=== PATIENT | female | born 1985 | race Caucasian/White ===

== ENCOUNTER 2016-03-19 13:44 | Outpatient (CLI) | payer OTHER ==
[~2016-03-19] VITALS: Ht 157.5 cm; Wt 90.0 kg
[~2016-03-19 13:44] MED LIST: /MOM400 PO; GABA-279 PO; HYDR-4274 PO; IBUP80TA PO; NORT25CA2 PO; OMEP40CA2 PO; PRENTAB74 PO; PRIL20CA PO; PROZ20CA11 PO; TRAZ50TA4 PO; ZONI100C2 PO
[2016-03-19] MEDS ORDERED: FERR325T3 PO (13:49)
[2016-03-19] MEDS ORDERED: PRENTAB9 PO (13:49)
[2016-03-19 13:58] VITALS: BP 122/60
== END 2016-03-19 16:03 | disposition home or self-care (01) ==
LOC: M LDO 13:44
PROVIDERS: ATTEND Advanced Practice Midwife
DX: O47.03 False labor before 37 completed weeks of gestation, third trimester (principal); Z3A.29 29 weeks gestation of pregnancy; N89.8 Other specified noninflammatory disorders of vagina; B18.2 Chronic viral hepatitis C; F32.9 Major depressive disorder, single episode, unspecified; F11.21 Opioid dependence, in remission; O98.413 Viral hepatitis complicating pregnancy, third trimester; O99.343 Other mental disorders complicating pregnancy, third trimester; O26.893 Other specified pregnancy related conditions, third trimester

== ENCOUNTER → 2016-03-21 | Outpatient (REF) | payer OTHER ==
[~2016-03-21] MED LIST changes: +FERR325T3 PO; +PRENTAB9 PO
== END ==
LOC: M LAB REF 16:37
PROVIDERS: ATTEND Advanced Practice Midwife
DX: Z34.83 Encounter for supervision of other normal pregnancy, third trimester (principal)

== ENCOUNTER → 2016-03-23 | Outpatient (REF) | payer OTHER ==
[2016-03-23 12:21] LABS: ALBUMIN 2.9 GM/DL (3.2-5.2); ALBUMIN/GLOBULIN RATIO 0.83 (1.00-1.93); ALKALINE PHOSPHATASE 79 U/L (45-117); ALT/SGPT 31 U/L (12-78); ANION GAP 10 MEQ/L (8-16); AST/SGOT 23 U/L (15-37); BILIRUBIN,TOTAL 0.4 MG/DL (0.2-1.0); BLOOD UREA NITROGEN 14 MG/DL (7-18); CALCIUM LEVEL 8.6 MG/DL (8.5-10.1); CARBON DIOXIDE LEVEL 26 MEQ/L (21-32); CHLORIDE LEVEL 104 MEQ/L (98-107); CREATININE FOR GFR 0.72 MG/DL (0.55-1.02); GLOMERULAR FILTRATION RATE > 60.0 (>60); GLUCOSE, FASTING 84 MG/DL (70-105); SODIUM LEVEL 140 MEQ/L (136-145); TOTAL PROTEIN 6.4 GM/DL (6.4-8.2)
[2016-03-25 00:06] LABS: HEPATITIS C QUANTITATION 659670 IU/mL (.)
== END ==
LOC: M SFHCPLAZ 09:25
PROVIDERS: ATTEND Internal Medicine Infectious Disease
DX: B18.2 Chronic viral hepatitis C (principal)

== ENCOUNTER 2016-04-29 21:30 | Outpatient (CLI) | payer OTHER, SELFPAY ==
[~2016-04-29] VITALS: Ht 162.6 cm; Wt 95.0 kg
[~2016-04-29 21:30] MED LIST changes: -PRIL20CA PO; +PRIL20CA9 PO
== END 2016-04-29 23:40 | disposition home or self-care (01) ==
LOC: M LDO 21:30
PROVIDERS: ATTEND Obstetrics & Gynecology
DX: O26.893 Other specified pregnancy related conditions, third trimester (principal); R14.0 Abdominal distension (gaseous); Z3A.36 36 weeks gestation of pregnancy; O98.413 Viral hepatitis complicating pregnancy, third trimester; B19.20 Unspecified viral hepatitis C without hepatic coma; Z87.898 Personal history of other specified conditions

== ENCOUNTER → 2016-05-05 | Outpatient (REF) | payer OTHER, SELFPAY | LOC: M LAB REF 12:19 | PROVIDERS: ATTEND Obstetrics & Gynecology | DX: Z34.83 Encounter for supervision of other normal pregnancy, third trimester (principal) ==

== ENCOUNTER → 2016-05-24 | Outpatient (REF) | payer OTHER ==
[~2016-05-24] MED LIST changes: +GABAPOW41 PO; +HYDROXIZINE PO
== END ==
LOC: M LAB REF 12:59
PROVIDERS: ATTEND Advanced Practice Midwife
DX: Z34.82 Encounter for supervision of other normal pregnancy, second trimester (principal)

== ENCOUNTER 2016-05-29 18:23 | Outpatient (CLI) | payer OTHER ==
[~2016-05-29] VITALS: Ht 160 cm; Wt 97.0 kg
[~2016-05-29 18:23] MED LIST changes: -GABAPOW41 PO; -HYDROXIZINE PO
[2016-05-29] MEDS ORDERED: GABAPOW41 PO (18:32)
[2016-05-29] MEDS ORDERED: HYDROXIZINE PO (18:34)
== END 2016-05-29 20:55 | disposition home or self-care (01) ==
LOC: M LDO 18:23
PROVIDERS: ATTEND Obstetrics & Gynecology
DX: O47.1 False labor at or after 37 completed weeks of gestation (principal); Z3A.39 39 weeks gestation of pregnancy

== ENCOUNTER 2016-05-29 21:52 | Inpatient (IN) | payer OTHER ==
[~2016-05-29] VITALS: Ht 157.5 cm; Wt 96.0 kg
[~2016-05-29 21:52] MED LIST changes: +GABAPOW41 PO; +HYDROXIZINE PO
[2016-05-29 22:03] VITALS: BP 119/68
[2016-05-29] MEDS ORDERED: LACTATED RINGER'S 1000 ML IV STA (22:52)
[2016-05-29] MEDS ORDERED: LR 1,000 ML IV SCH (22:52)
[2016-05-29 23:31] LABS: BASO % 0.2 % (0.0-1.0); EOS # 0.3 K/mm3 (0.0-0.50); EOS % 2.6 % (0.0-3.0); LARGE UNSTAINED CELL # 0.1 K/mm3 (0.0-0.4); LARGE UNSTAINED CELL % 0.9 % (0.0-4.0); LYMPH # 1.7 K/mm3 (1.5-6.5); LYMPH % 13.3 % (24.0-44.0); MEAN CORPUSCULAR HGB CONC 34.8 g/dl (32.0-36.5); MONO # 0.7 K/mm3 (0.0-0.8); MONO % 5.4 % (0.0-5.0); NEUTROPHILS # 9.5 K/mm3 (1.8-7.7); NEUTROPHILS % 77.6 % (36.0-66.0); PLATELET COUNT, AUTOMATED 334 k/mm3 (150-450); RED CELL DISTRIBUTION WIDTH 13.1 % (11.5-14.5); WHITE BLOOD COUNT 12.3 K/mm3 (4.0-10.0)
[2016-05-30] VITALS (20 sets, daily range): BP systolic 105–192; BP diastolic 58–79
[2016-05-30] MEDS ORDERED: OXYTOCIN DRIP 30 UNITS in APPROPRIATE DILUENT 1 EA IV SCH ×2 (08:00→10:00)
[2016-05-30] MEDS: PRENATAL VITAMIN TAB PO SCH (09:00)
[2016-05-30] MEDS ORDERED: DIBUCAINE 1% OINTMENT 30GM TOP PRN (10:00)
[2016-05-30] MEDS ORDERED: IBUPROFEN 800 MG TAB PO PRN (10:00)
[2016-05-30] MEDS ORDERED: RHOGAM 300 MCG (1500 IU) INJ (J2790) IM SCH (10:00)
[2016-05-30] MEDS ORDERED: ANUSOL HC CREAM 30GM TOP PRN (10:00)
[2016-05-30] MEDS ORDERED: MEASLES,MUMPS,RUBELLA VACCINE INJ (MMR-II) (90707) SC SCH (10:00)
[2016-05-30] MEDS ORDERED: METHYLERGONOVINE MALEATE 0.2 MG TAB PO PRN (10:00)
[2016-05-30] MEDS ORDERED: DOCUSATE SODIUM 100 MG CAP PO PRN (10:00)
[2016-05-30 10:17] LABS: CORD GAS ABE V -2.5; CORD GAS HCO3 V 23.5 MEQ/L; CORD GAS O2 SAT V 59.3 %; CORD GAS PCO2 V 45.1 mmHg; CORD GAS PH V 7.335 UNITS; CORD GAS PO2 V 24.8 mmHg; CORD GAS SBC V 21.5 MEQ/L; CORD GAS TCO2 V 24.9 MEQ/L
[2016-05-30 10:19] LABS: CORD GAS ABE A -1.9; CORD GAS HCO3 A 24.6 MEQ/L; CORD GAS O2 SAT A 28.6 %; CORD GAS PCO2 A 48.8 mmHg; CORD GAS PH A 7.321 UNITS; CORD GAS PO2 A 14.9 mmHg; CORD GAS SBC A 21.3 MEQ/L; CORD GAS TCO2 A 26.1 MEQ/L
[2016-05-30] MEDS ORDERED: OXYTOCIN INJ 10 UNITS/ML VIAL (J2590) As Ordered ONE (15:54)
[2016-05-30] MEDS ORDERED: OXYTOCIN INJ 10 UNITS/ML VIAL (J2590) IV ONE (16:00)
[2016-05-31 06:00] VITALS: BP 102/51
[2016-05-31] MEDS: PRENATAL VITAMIN TAB PO SCH (08:21)
[2016-05-31] MEDS: ACETAMINOPHEN 500 MG TAB PO PRN ×2 (12:08→21:00)
[2016-05-31 18:05] VITALS: BP 105/59
--- NOTE | 2016-05-31 21:16 | HPE ---
DATE OF ADMISSION: 05/29/2016 Yuli is a 30-year-old female 7, para 2-0-4-2 with an EDC of 06/02/2016, EGA 39+ weeks gestation who presented with complaints of contractions every 3-4 minutes. Upon evaluation she was found to be in early labor. She was then discharged and came back with increased contractions, at this point a decision was made for admission. Her record reviewed. Blood is A+, rubella immune, hepatitis negative, HIV negative, GC/chlamydia negative, 1-hour sugar testing was within normal limits. Her GBS is negative. The patient has chronic hepatitis C. PAST MEDICAL HISTORY: Significant for chronic hepatitis C, no recent flare-up. PAST SURGICAL HISTORY: Had a LEEP procedure in 2009. SOCIAL HISTORY: She denies any alcohol or drug use. 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 FAMILY HISTORY: Unremarkable. MEDICATIONS: - vitamins ALLERGIES; No known drug allergies. PHYSICAL EXAMINATION: HEENT: Grossly within normal limits. ABDOMEN: Soft, nontender, nondistended. EXTREMITIES: No clubbing, cyanosis or edema. VAGINAL EXAM: Was 3-4 cm dilated, 80% effaced, fetus at -2 station in a vertex position. Tracing reviewed category one tracing. ASSESSMENT: Intrauterine at 39+ weeks gestation in labor. PLAN: Admit to labor and delivery. Routine labs sent. Pain management discussed. The patient opted for an epidural. Will continue to monitor. Anticipate delivery. [facility]
[2016-06-01 06:27] VITALS: BP 105/56
--- NOTE | 2016-06-01 06:52 | DN ---
DATE: 05/30/2016 Yuli is a 30-year-old female 7, para 2-0-4-2 who was admitted at 39 weeks gestation in labor. She progressed to fully dilated after artificial rupture of membranes with thick meconium and Pitocin augmentation. She delivered a live male in right occiput anterior position over an intact perineum. 9 and 9. weight 7 pounds 13 ounces. Placenta delivered spontaneously intact. Three-vessel cord. Perineum, vagina and cervix inspected. No laceration noted. The baby was cared for by our heel varnisher Dr. Wallace. Estimated blood loss 250 mL. Both mother and baby in stable condition.
[2016-06-01] MEDS ORDERED: IBUP-1114 PO (08:37)
[2016-06-01] MEDS ORDERED: ACET50TA PO (08:37)
[2016-06-01] MEDS: PRENATAL VITAMIN TAB PO SCH (08:55)
[2016-06-01] MEDS: ACETAMINOPHEN 500 MG TAB PO PRN (08:55)
== END 2016-06-01 10:00 | disposition home or self-care (01) | DRG 560 ==
LOC: M LDO 21:52 → M LDI 22:45 → M OBS 05-30 12:38
PROVIDERS: ADMIT Obstetrics & Gynecology; ATTEND Obstetrics & Gynecology
PROC: 10E0XZZ Delivery of Products of Conception, External Approach (ICD-10-PCS; principal; 2016-05-30)
PROC: 10907ZC Drainage of Amniotic Fluid, Therapeutic from Products of Conception, Via Natural or Artificial Opening (ICD-10-PCS; 2016-05-30)
DX: O98.42 Viral hepatitis complicating childbirth (principal); B18.2 Chronic viral hepatitis C; Z37.0 Single live birth; Z3A.39 39 weeks gestation of pregnancy; Z87.891 Personal history of nicotine dependence; O77.0 Labor and delivery complicated by meconium in amniotic fluid; Z79.899 Other long term (current) drug therapy

== ENCOUNTER → 2016-06-07 | Outpatient (CLI) | payer OTHER ==
[~2016-06-07] MED LIST changes: +ACET50TA PO; +IBUP-1114 PO
[2016-06-07 11:33] LABS: CONTROL LINE UCG INT CTR LINE PRESENT
[2016-06-07 11:45] LABS: BASO % 0.4 % (0.0-1.0); EOS # 0.1 K/mm3 (0.0-0.50); EOS % 1.3 % (0.0-3.0); LARGE UNSTAINED CELL # 0.1 K/mm3 (0.0-0.4); LARGE UNSTAINED CELL % 1.7 % (0.0-4.0); LYMPH # 1.5 K/mm3 (1.5-6.5); LYMPH % 18.8 % (24.0-44.0); MEAN CORPUSCULAR HEMOGLOBIN 31.4 pg (27.0-33.0); MEAN CORPUSCULAR HGB CONC 33.1 g/dl (32.0-36.5); MEAN CORPUSCULAR VOLUME 94.9 fl (80.0-96.0); MONO # 0.6 K/mm3 (0.0-0.8); MONO % 7.8 % (0.0-5.0); PLATELET COUNT, AUTOMATED 468 k/mm3 (150-450); RED CELL DISTRIBUTION WIDTH 12.3 % (11.5-14.5); WHITE BLOOD COUNT 7.2 K/mm3 (4.0-10.0)
[2016-06-07 12:07] LABS: ALBUMIN 2.9 GM/DL (3.2-5.2); ALBUMIN/GLOBULIN RATIO 0.83 (1.00-1.93); ALKALINE PHOSPHATASE 114 U/L (45-117); ALT/SGPT 37 U/L (12-78); ANION GAP 8 MEQ/L (8-16); AST/SGOT 22 U/L (15-37); BILIRUBIN,TOTAL 0.3 MG/DL (0.2-1.0); BLOOD UREA NITROGEN 19 MG/DL (7-18); CARBON DIOXIDE LEVEL 30 MEQ/L (21-32); CHLORIDE LEVEL 105 MEQ/L (98-107); CREATININE FOR GFR 0.88 MG/DL (0.55-1.02); GLOMERULAR FILTRATION RATE > 60.0 (>60); GLUCOSE, FASTING 78 MG/DL (70-105); POTASSIUM SERUM 4.3 MEQ/L (3.5-5.1); SODIUM LEVEL 143 MEQ/L (136-145); TOTAL PROTEIN 6.4 GM/DL (6.4-8.2)
[2016-06-07 12:54] LABS: CONTROL LINE INT CTR LINE PRESENT; HIV SCRN NEGATIVE (NEGATIVE); HIV SCRN1 NEGATIVE (NEGATIVE)
--- NOTE | 2016-06-08 21:55 | ECGEPIP ---
Stationary ECG Study [facility] Test Date: 2016-06-07 Pat Name: ERENDIRA ISSA Department: Room: - Gender: F [employer] Department Supervisor: : [id number] Requested By: Homer Sanchez Order Number: [id number] Reading MD: Cathy Turk Measurements Intervals [place] Rate: 60 P: 54 KS: 120 QRS: 13 QRSD: 85 T: 42 QT: 389 QTc: 391 Interpretive Statements SINUS RHYTHM WITH SINUS ARRHYTHMIA POSSIBLE LEFT ATRIAL ENLARGEMENT HR IS MUCH SLOWER SINCE 02/13/15 Electronically Signed On 06-08-2016 21:55:07 EDT by Cathy Turk
== END ==
LOC: M LAB 10:46
PROVIDERS: ATTEND Family Medicine
DX: F11.20 Opioid dependence, uncomplicated (principal)

== ENCOUNTER → 2016-06-15 | Outpatient (REF) | payer OTHER | LOC: M LAB REF 16:28 | PROVIDERS: ATTEND Nurse Practitioner Family | DX: R30.0 Dysuria (principal) ==

== ENCOUNTER 2017-01-03 12:27 | Emergency (ER) | payer OTHER ==
[~2017-01-03] VITALS: Ht 157.5 cm; Wt 78.2 kg
[~2017-01-03 12:27] MED LIST changes: -HYDR-4274 PO; +HYDR50TA70 PO; +TRAZ50TA11 PO; -TRAZ50TA4 PO
[2017-01-03] MEDS ORDERED: METH10CO PO (12:39)
[2017-01-03] MEDS ORDERED: cloNIDine 0.1 MG TAB PO ONE (13:15)
[2017-01-03] MEDS ORDERED: ONDANSETRON 4 MG TAB (S0181) PO ONE (13:15)
[2017-01-03] MEDS ORDERED: LORazepam 2 MG/ML VIAL (J2060) IV STA (13:50)
[2017-01-03] MEDS ORDERED: NS 1,000 ML IV ONE (14:00)
[2017-01-03 14:14] LABS: MEAN CORPUSCULAR HEMOGLOBIN 30.3 pg (27.0-33.0); MEAN CORPUSCULAR HGB CONC 33.7 g/dl (32.0-36.5); MEAN CORPUSCULAR VOLUME 89.9 fl (80.0-96.0); RED CELL DISTRIBUTION WIDTH 12.5 % (11.5-14.5); WHITE BLOOD COUNT 7.3 10^3/uL (4.0-10.0)
[2017-01-03 15:02] LABS: ALBUMIN 3.4 GM/DL (3.2-5.2); ALBUMIN/GLOBULIN RATIO 0.92 (1.00-1.93); ALKALINE PHOSPHATASE 97 U/L (45-117); ALT/SGPT 36 U/L (12-78); ANION GAP 7 MEQ/L (8-16); AST/SGOT 24 U/L (15-37); BILIRUBIN,TOTAL 0.2 MG/DL (0.2-1.0); BLOOD UREA NITROGEN 13 MG/DL (7-18); CALCIUM LEVEL 9.2 MG/DL (8.5-10.1); CARBON DIOXIDE LEVEL 27 MEQ/L (21-32); CHLORIDE LEVEL 108 MEQ/L (98-107); CREATININE FOR GFR 0.87 MG/DL (0.55-1.02); GLOMERULAR FILTRATION RATE > 60.0 (>60); GLUCOSE, FASTING 109 MG/DL (70-105); POTASSIUM SERUM 3.4 MEQ/L (3.5-5.1); SODIUM LEVEL 142 MEQ/L (136-145); TOTAL PROTEIN 7.1 GM/DL (6.4-8.2)
[2017-01-03] MEDS ORDERED: POTASSIUM CHLORIDE 10 MEQ SR TABLET PO ONE (15:45)
[2017-01-03 17:29] VITALS: BP 106/60
== END 2017-01-03 17:30 | disposition home or self-care (01) ==
LOC: M ED 12:27
DX: F11.23 Opioid dependence with withdrawal (principal); E87.6 Hypokalemia; B18.2 Chronic viral hepatitis C; Z72.0 Tobacco use
CPT/HCPCS: 80053; 83735; 85027; 96374; 99283; J2060

== ENCOUNTER → 2017-06-06 | Outpatient (REF) | payer OTHER ==
[2017-06-06 11:45] LABS: BASO % 0.5 % (0.0-1.0); EOS # 0.2 10^3/uL (0.0-0.50); EOS % 3.5 % (0.0-3.0); IMMATURE GRANULOCYTE % 0.2 % (0-3.0); LYMPH # 2.8 10^3/uL (1.5-6.5); LYMPH % 50.6 % (24.0-44.0); MEAN CORPUSCULAR HEMOGLOBIN 29.3 pg (27.0-33.0); MEAN CORPUSCULAR HGB CONC 32.4 g/dl (32.0-36.5); MEAN CORPUSCULAR VOLUME 90.5 fl (80.0-96.0); MONO # 0.6 10^3/uL (0.0-0.8); MONO % 11.7 % (0.0-5.0); NEUTROPHILS # 1.8 10^3/uL (1.8-7.7); NEUTROPHILS % 33.5 % (36.0-66.0); PLATELET COUNT, AUTOMATED 285 10^3/uL (150-450); RED BLOOD COUNT 4.09 10^6/uL (4.00-5.40); RED CELL DISTRIBUTION WIDTH 12.7 % (11.5-14.5); WHITE BLOOD COUNT 5.5 10^3/uL (4.0-10.0)
[2017-06-06 12:10] LABS: ALBUMIN 3.2 GM/DL (3.2-5.2); ALBUMIN/GLOBULIN RATIO 0.89 (1.00-1.93); ALKALINE PHOSPHATASE 103 U/L (45-117); ALT/SGPT 37 U/L (12-78); ANION GAP 5 MEQ/L (8-16); AST/SGOT 28 U/L (7-37); BILIRUBIN,TOTAL 0.3 MG/DL (0.2-1.0); BLOOD UREA NITROGEN 16 MG/DL (7-18); CALCIUM LEVEL 8.9 MG/DL (8.5-10.1); CARBON DIOXIDE LEVEL 30 MEQ/L (21-32); CHLORIDE LEVEL 110 MEQ/L (98-107); CREATININE FOR GFR 0.75 MG/DL (0.55-1.30); GLOMERULAR FILTRATION RATE > 60.0 (>60); GLUCOSE, FASTING 94 MG/DL (70-100); POTASSIUM SERUM 4.4 MEQ/L (3.5-5.1); SODIUM LEVEL 145 MEQ/L (136-145); TOTAL PROTEIN 6.8 GM/DL (6.4-8.2)
== END ==
LOC: M SFHCPLAZ 10:06
DX: B18.2 Chronic viral hepatitis C (principal)

== ENCOUNTER → 2017-06-06 | Outpatient (REF) | payer OTHER ==
[2017-06-06 18:30] LABS: APPEARANCE, URINE CLOUDY (CLEAR); BACTERIA, URINE AUTO 1+ (NEGATIVE); BILIRUBIN, URINE AUTO NEGATIVE (NEGATIVE); BLOOD, URINE BLOOD NEGATIVE (NEGATIVE); COLOR, URINE AMBER (YELLOW); GLUCOSE, URINE (UA) AUTO NEGATIVE (NEGATIVE); KETONE, URINE AUTO NEGATIVE (NEGATIVE); LEUKOCYTE ESTERASE, URINE AUTO 2+ (NEGATIVE); MUCUS, URINE SMALL (NEGATIVE); NITRITE, URINE AUTO NEGATIVE (NEGATIVE); PROTEIN, URINE AUTO NEGATIVE (NEGATIVE); RBC, URINE AUTO 1 /HPF (0-3); SPECIFIC GRAVITY URINE AUTO 1.028 (1.002-1.035); SQUAMOUS EPITHELIAL CELL UR AU 15 /HPF (0-6); WBC, URINE AUTO 7 /HPF (0-3)
== END ==
LOC: M LAB REF 17:19
DX: N39.0 Urinary tract infection, site not specified (principal)

== ENCOUNTER → 2017-06-06 | Outpatient (CLI) | payer OTHER ==
[2017-06-06 11:54] LABS: HEMATOCRIT 36.8 % (36.0-47.0); HEMOGLOBIN 12.1 g/dl (12.0-16.0); MEAN CORPUSCULAR HEMOGLOBIN 29.9 pg (27.0-33.0); MEAN CORPUSCULAR HGB CONC 32.9 g/dl (32.0-36.5); MEAN CORPUSCULAR VOLUME 90.9 fl (80.0-96.0); PLATELET COUNT, AUTOMATED 263 10^3/uL (150-450); RED BLOOD COUNT 4.05 10^6/uL (4.00-5.40); RED CELL DISTRIBUTION WIDTH 12.7 % (11.5-14.5); WHITE BLOOD COUNT 4.6 10^3/uL (4.0-10.0)
[2017-06-06 12:25] LABS: ALBUMIN 3.3 GM/DL (3.2-5.2); ALBUMIN/GLOBULIN RATIO 0.92 (1.00-1.93); ALKALINE PHOSPHATASE 102 U/L (45-117); ALT/SGPT 35 U/L (12-78); ANION GAP 6 MEQ/L (8-16); AST/SGOT 30 U/L (7-37); BILIRUBIN,TOTAL 0.4 MG/DL (0.2-1.0); BLOOD UREA NITROGEN 15 MG/DL (7-18); CALCIUM LEVEL 8.7 MG/DL (8.5-10.1); CARBON DIOXIDE LEVEL 29 MEQ/L (21-32); CHLORIDE LEVEL 110 MEQ/L (98-107); CREATININE FOR GFR 0.73 MG/DL (0.55-1.30); GLOMERULAR FILTRATION RATE > 60.0 (>60); GLUCOSE, FASTING 69 MG/DL (70-100); POTASSIUM SERUM 4.2 MEQ/L (3.5-5.1); SODIUM LEVEL 145 MEQ/L (136-145); TOTAL PROTEIN 6.9 GM/DL (6.4-8.2)
[2017-06-06 12:44] LABS: HEPATITIS B SURFACE ANTIGEN NEGATIVE (NEGATIVE)
[2017-06-06 13:07] LABS: HIV 1&2 SCREEN CENTAUR NEGATIVE (NEGATIVE)
[2017-06-06 13:59] LABS: HEPATITIS C VIRUS ABY INDEX > 11.0 INDEX (<0.8)
[2017-06-06 15:40] LABS: CHLAMYDIA DNA AMPLIFICATION NEGATIVE (NEGATIVE); GC DNA AMPLIFICATION NEGATIVE (NEGATIVE)
[2017-06-09 00:07] LABS: HCV RNA NAA QUALITATIVE Positive (Negative)
== END ==
LOC: M LAB 10:59
DX: F11.20 Opioid dependence, uncomplicated (principal)
CPT/HCPCS: 93005

== ENCOUNTER 2017-07-19 17:11 | Inpatient (IN) | payer OTHER ==
[2017-07-19 17:20] LABS: BASO % 0.4 % (0.0-1.0); EOS # 0.2 10^3/uL (0.0-0.50); EOS % 2.3 % (0.0-3.0); HEMATOCRIT 36.8 % (36.0-47.0); HEMOGLOBIN 12.1 g/dl (12.0-15.5); IMMATURE GRANULOCYTE % 0.1 % (0-3.0); LYMPH % 41.5 % (24.0-44.0); MEAN CORPUSCULAR HEMOGLOBIN 29.7 pg (27.0-33.0); MEAN CORPUSCULAR HGB CONC 32.9 g/dl (32.0-36.5); MEAN CORPUSCULAR VOLUME 90.4 fl (80.0-96.0); MONO # 0.8 10^3/uL (0.0-0.8); MONO % 10.7 % (0.0-5.0); NEUTROPHILS # 3.2 10^3/uL (1.8-7.7); PLATELET COUNT, AUTOMATED 280 10^3/uL (150-450); RED BLOOD COUNT 4.07 10^6/uL (4.00-5.40); WHITE BLOOD COUNT 7.1 10^3/uL (4.0-10.0)
[2017-07-19 17:53] LABS: LACTIC ACID SEPSIS PROTOCOL 0.6 MMOL/L (0.4-2.0)
[2017-07-19 18:00] LABS: ACETAMINOPHEN LEVEL < 2.0 UG/ML (10.0-30.0); ALBUMIN 3.3 GM/DL (3.2-5.2); ALBUMIN/GLOBULIN RATIO 0.94 (1.00-1.93); ALKALINE PHOSPHATASE 111 U/L (45-117); ALT/SGPT 45 U/L (12-78); ANION GAP 6 MEQ/L (8-16); AST/SGOT 44 U/L (7-37); BILIRUBIN,DIRECT 0.1 MG/DL (0.0-0.2); BILIRUBIN,TOTAL 0.4 MG/DL (0.2-1.0); BLOOD UREA NITROGEN 9 MG/DL (7-18); CARBON DIOXIDE LEVEL 32 MEQ/L (21-32); CHLORIDE LEVEL 104 MEQ/L (98-107); CPK CREATINE PHOSPHOKINASE 287 U/L (26-192); CREATININE FOR GFR 1.05 MG/DL (0.55-1.30); ETHYL ALCOHOL (ETHANOL) < 0.003 % (0.000-0.010); GLOMERULAR FILTRATION RATE > 60.0 (>60); GLUCOSE, FASTING 91 MG/DL (70-100); POTASSIUM SERUM 4.2 MEQ/L (3.5-5.1); SALICYLATE LEVEL 1.9 MG/DL (5.0-30.0); SODIUM LEVEL 142 MEQ/L (136-145); TOTAL PROTEIN 6.8 GM/DL (6.4-8.2)
[2017-07-19] MEDS: NALOXONE INJ 0.4 MG/1 ML VIAL (J2310) IV (18:00)
[2017-07-19 18:21] LABS: AMPHETAMINES LEVEL URINE NEGATIVE (NEGATIVE); BARBITURATES URINE NEGATIVE (NEGATIVE); BENZODIAZEPINES URINE POSITIVE (NEGATIVE); CANNABINOIDS URINE NEGATIVE (NEGATIVE); COCAINE METABOLITE URINE NEGATIVE (NEGATIVE); METHADONE URINE POSITIVE (NEGATIVE); OPIATES URINE NEGATIVE (NEGATIVE); PHENCYCLIDINE URINE NEGATIVE (NEGATIVE)
[2017-07-19 18:27] LABS: ABG BASE EXCESS 5.1 (-2.0-2.0); ABG HCO3 28.6 MEQ/L (22.0-26.0); ABG O2 SATURATION 96.4 % (95.0-99.0); ABG TOTAL CO2 29.7 MEQ/L (22.0-29.0); ABG pH (ARTERIAL) 7.494 UNITS (7.350-7.450)
[2017-07-19] MEDS ORDERED: ONDANSETRON 4MG/2ML VIAL (J2405) IV (19:00)
[2017-07-19] MEDS ORDERED: cloNIDine 0.2 MG TAB PO (19:45)
[2017-07-19 20:31] LABS: CPK CREATINE PHOSPHOKINASE 326 U/L (26-192); TROPONIN I < 0.02 NG/ML (< 0.10)
[2017-07-19 20:32] LABS: CK-MB VALUE MASS 7.6 NG/ML (<3.6); MB/CK RELATIVE INDEX 2.33 (< OR =4)
[2017-07-19] MEDS: GABAPENTIN 400 MG CAP PO (21:00)
[2017-07-19] MEDS: MULTIVITAMIN -ADULT INJECTION 10 ML, THIAMINE INJection 100 MG, FOLIC ACID 1 MG in NS 1... IV (21:01)
[2017-07-19] MEDS: HEPARIN SOD (PORCINE) 5000 UNITS/ML VIAL SC (21:07)
[2017-07-20 04:15] LABS: HEMATOCRIT 35.8 % (36.0-47.0); HEMOGLOBIN 11.9 g/dl (12.0-15.5); MEAN CORPUSCULAR HEMOGLOBIN 30.1 pg (27.0-33.0); MEAN CORPUSCULAR HGB CONC 33.2 g/dl (32.0-36.5); MEAN CORPUSCULAR VOLUME 90.6 fl (80.0-96.0); PLATELET COUNT, AUTOMATED 274 10^3/uL (150-450); RED BLOOD COUNT 3.95 10^6/uL (4.00-5.40); RED CELL DISTRIBUTION WIDTH 12.9 % (11.5-14.5); WHITE BLOOD COUNT 6.2 10^3/uL (4.0-10.0)
[2017-07-20 04:38] LABS: ALBUMIN 2.7 GM/DL (3.2-5.2); ALBUMIN/GLOBULIN RATIO 0.75 (1.00-1.93); ALKALINE PHOSPHATASE 96 U/L (45-117); ALT/SGPT 38 U/L (12-78); ANION GAP 5 MEQ/L (8-16); AST/SGOT 48 U/L (7-37); BILIRUBIN,TOTAL 0.4 MG/DL (0.2-1.0); BLOOD UREA NITROGEN 8 MG/DL (7-18); CALCIUM LEVEL 8.1 MG/DL (8.5-10.1); CARBON DIOXIDE LEVEL 28 MEQ/L (21-32); CHLORIDE LEVEL 109 MEQ/L (98-107); CK-MB VALUE MASS 4.2 NG/ML (<3.6); CPK CREATINE PHOSPHOKINASE 245 U/L (26-192); CREATININE FOR GFR 0.77 MG/DL (0.55-1.30); GLOMERULAR FILTRATION RATE > 60.0 (>60); GLUCOSE, FASTING 91 MG/DL (70-100); MAGNESIUM LEVEL 1.6 MG/DL (1.8-2.4); MB/CK RELATIVE INDEX 1.71 (< OR =4); POTASSIUM SERUM 4.4 MEQ/L (3.5-5.1); SODIUM LEVEL 142 MEQ/L (136-145); TOTAL PROTEIN 6.3 GM/DL (6.4-8.2); TROPONIN I < 0.02 NG/ML (< 0.10)
[2017-07-20] MEDS: HEPARIN SOD (PORCINE) 5000 UNITS/ML VIAL SC ×3 (06:00→21:00)
[2017-07-20] MEDS: THIAMINE 100 MG TAB PO (08:08)
[2017-07-20] MEDS: MAG SULF 1GM/100ML (MAG RUN) 1 GM in APPROPRIATE DILUENT 1 EA IV ×2 (08:08→09:12)
[2017-07-20] MEDS: FLUoxetine 10 MG CAP PO (08:08)
[2017-07-20] MEDS: FOLIC ACID 1 MG TAB PO (08:08)
[2017-07-20] MEDS: GABAPENTIN 400 MG CAP PO ×3 (08:08→21:00)
[2017-07-20] MEDS: MULTIVITAMINS/MINERALS THERAP 1 TAB PO (08:08)
[2017-07-20] MEDS ORDERED: ENTER DRUG NAME HERE (PATIENT'S OWN MED) PO ×2 (09:00)
[2017-07-20] MEDS: NICOTINE POLACRILEX 2 MG GUM PO ×2 (14:51→22:25)
== END 2017-07-20 23:19 | DRG 812 ==
LOC: M MSPAV 07-20 16:34 → M ED 17:11 → M ED INP 18:56 → M ICU 20:51
DX: T42.4X4A Poisoning by benzodiazepines, undetermined, initial encounter (principal); F32.9 Major depressive disorder, single episode, unspecified; R53.83 Other fatigue; B19.20 Unspecified viral hepatitis C without hepatic coma; Z91.018 Allergy to other foods; F17.210 Nicotine dependence, cigarettes, uncomplicated; Z79.899 Other long term (current) drug therapy

== ENCOUNTER 2017-07-20 23:22 | Inpatient (IN) | payer MEDICAID ==
[~2017-07-20 23:22] MED LIST changes: -/MOM400 PO; -ACET50TA PO; +ACETAMINOPHEN TAB 650MG DOSE (2X325MG) PO; -FERR325T3 PO; -GABA-279 PO; -GABAPOW41 PO; -HYDR50TA70 PO; -HYDROXIZINE PO; -IBUP-1114 PO; -IBUP80TA PO; +MAALOX 30 ML SUSP *UDC PO; +MOM 30ML SUSPENSION UDC PO; -NORT25CA2 PO; -OMEP40CA2 PO; -PRENTAB74 PO; -PRENTAB9 PO; -PRIL20CA9 PO; -PROZ20CA11 PO; -TRAZ50TA11 PO; -ZONI100C2 PO
[2017-07-21] MEDS: traZODone 50 MG TAB PO (00:08)
[2017-07-21] MEDS: NICOTINE POLACRILEX 2 MG GUM PO ×4 (08:14→20:33)
[2017-07-21] MEDS: PREGABALIN 100 MG CAP (LYRICA) PO ×3 (08:14→20:33)
[2017-07-21] MEDS: GABAPENTIN 400 MG CAP PO ×3 (08:14→20:33)
[2017-07-21] MEDS: FLUoxetine 20 MG CAP PO (08:14)
[2017-07-21] MEDS: METHADONE 10 MG TAB (S0109) PO (08:16)
[2017-07-21] MEDS ORDERED: CARISOPRODOL 350 MG TAB PO (09:00)
[2017-07-21] MEDS: CARISOPRODOL 350 MG TAB PO (20:33)
[2017-07-21] MEDS: PRAZOSIN 1 MG CAP PO (20:33)
[2017-07-21] MEDS: traZODone 100 MG TAB PO (22:24)
[2017-07-22] MEDS: PREGABALIN 100 MG CAP (LYRICA) PO ×3 (08:05→20:41)
[2017-07-22] MEDS: GABAPENTIN 400 MG CAP PO ×3 (08:06→20:42)
[2017-07-22] MEDS: FLUoxetine 20 MG CAP PO (08:08)
[2017-07-22] MEDS: METHADONE 10 MG TAB (S0109) PO (08:08)
[2017-07-22] MEDS: NICOTINE POLACRILEX 2 MG GUM PO ×4 (08:14→20:42)
[2017-07-22] MEDS: PRAZOSIN 1 MG CAP PO (20:42)
[2017-07-22] MEDS: CARISOPRODOL 350 MG TAB PO (20:42)
[2017-07-22] MEDS: traZODone 100 MG TAB PO (22:09)
[2017-07-23 07:17] LABS: ALBUMIN 3.3 GM/DL (3.2-5.2); ALBUMIN/GLOBULIN RATIO 0.92 (1.00-1.93); ALKALINE PHOSPHATASE 94 U/L (45-117); ALT/SGPT 52 U/L (12-78); AST/SGOT 54 U/L (7-37); BILIRUBIN,DIRECT 0.1 MG/DL (0.0-0.2); BILIRUBIN,TOTAL 0.4 MG/DL (0.2-1.0); CPK CREATINE PHOSPHOKINASE 93 U/L (26-192); MAGNESIUM LEVEL 2.1 MG/DL (1.8-2.4); TOTAL PROTEIN 6.9 GM/DL (6.4-8.2)
[2017-07-23] MEDS: GABAPENTIN 400 MG CAP PO (08:18)
[2017-07-23] MEDS: FLUoxetine 20 MG CAP PO (08:18)
[2017-07-23] MEDS: NICOTINE POLACRILEX 2 MG GUM PO (08:19)
[2017-07-23] MEDS: PREGABALIN 100 MG CAP (LYRICA) PO (08:19)
[2017-07-23] MEDS: METHADONE 10 MG TAB (S0109) PO (08:19)
== END 2017-07-23 12:00 | disposition home or self-care (01) | DRG 885 ==
LOC: M PSY 23:22
DX: F33.2 Major depressive disorder, recurrent severe without psychotic features (principal); F43.10 Post-traumatic stress disorder, unspecified; F11.90 Opioid use, unspecified, uncomplicated; Z59.8 Other problems related to housing and economic circumstances; Z79.899 Other long term (current) drug therapy; Z91.018 Allergy to other foods; B18.2 Chronic viral hepatitis C; K21.9 Gastro-esophageal reflux disease without esophagitis; G43.909 Migraine, unspecified, not intractable, without status migrainosus

== ENCOUNTER → 2017-08-06 | Outpatient (CLI) | payer OTHER ==
[2017-08-06 09:20] LABS: BASO % 0.4 % (0.0-1.0); EOS # 0.1 10^3/uL (0.0-0.50); EOS % 1.1 % (0.0-3.0); HEMATOCRIT 37.2 % (36.0-47.0); HEMOGLOBIN 12.2 g/dl (12.0-15.5); IMMATURE GRANULOCYTE % 0.4 % (0-3.0); LYMPH # 1.9 10^3/uL (1.5-6.5); LYMPH % 26.6 % (24.0-44.0); MEAN CORPUSCULAR HGB CONC 32.8 g/dl (32.0-36.5); MEAN CORPUSCULAR VOLUME 91.6 fl (80.0-96.0); MONO # 0.7 10^3/uL (0.0-0.8); MONO % 9.1 % (0.0-5.0); NEUTROPHILS # 4.5 10^3/uL (1.8-7.7); NEUTROPHILS % 62.4 % (36.0-66.0); PLATELET COUNT, AUTOMATED 345 10^3/uL (150-450); RED BLOOD COUNT 4.06 10^6/uL (4.00-5.40); RED CELL DISTRIBUTION WIDTH 12.8 % (11.5-14.5); WHITE BLOOD COUNT 7.2 10^3/uL (4.0-10.0)
[2017-08-06 09:23] LABS: APPEARANCE, URINE CLOUDY (CLEAR); BACTERIA, URINE AUTO 1+ (NEGATIVE); BILIRUBIN, URINE AUTO 1+ (NEGATIVE); BLOOD, URINE BLOOD NEGATIVE (NEGATIVE); COLOR, URINE AMBER (YELLOW); GLUCOSE, URINE (UA) AUTO NEGATIVE (NEGATIVE); KETONE, URINE AUTO TRACE mg/dL (NEGATIVE); LEUKOCYTE ESTERASE, URINE AUTO 2+ (NEGATIVE); MUCUS, URINE LARGE (NEGATIVE); NITRITE, URINE AUTO NEGATIVE (NEGATIVE); PROTEIN, URINE AUTO 2+ mg/dL (NEGATIVE); RBC, URINE AUTO 3 /HPF (0-3); SPECIFIC GRAVITY URINE AUTO 1.029 (1.002-1.035); SQUAMOUS EPITHELIAL CELL UR AU 53 /HPF (0-6); WBC, URINE AUTO 15 /HPF (0-3)
[2017-08-06 09:45] LABS: ALBUMIN 3.6 GM/DL (3.2-5.2); ALBUMIN/GLOBULIN RATIO 1.16 (1.00-1.93); ALKALINE PHOSPHATASE 84 U/L (45-117); ALT/SGPT 23 U/L (12-78); ANION GAP 8 MEQ/L (8-16); AST/SGOT 24 U/L (7-37); BILIRUBIN,TOTAL 0.4 MG/DL (0.2-1.0); BLOOD UREA NITROGEN 13 MG/DL (7-18); CALCIUM LEVEL 8.9 MG/DL (8.5-10.1); CARBON DIOXIDE LEVEL 28 MEQ/L (21-32); CHLORIDE LEVEL 105 MEQ/L (98-107); CREATININE FOR GFR 0.89 MG/DL (0.55-1.30); FREE T4 1.15 NG/DL (0.76-1.46); GLOMERULAR FILTRATION RATE > 60.0 (>60); GLUCOSE, FASTING 112 MG/DL (70-100); POTASSIUM SERUM 4.1 MEQ/L (3.5-5.1); SODIUM LEVEL 141 MEQ/L (136-145); TOTAL PROTEIN 6.7 GM/DL (6.4-8.2)
[2017-08-06 09:56] LABS: HEPATITIS B SURFACE ANTIBODY POSITIVE (POSITIVE)
[2017-08-06 10:06] LABS: HEPATITIS B SURFACE ANTIGEN NEGATIVE (NEGATIVE)
[2017-08-06 10:44] LABS: HEPATITIS C VIRUS ABY INDEX > 11.0 INDEX (<0.8)
[2017-08-09 00:11] LABS: HEPATITIS A IgG TOTAL Positive (Negative)
[2017-08-09 08:11] LABS: HCV RNA NAA QUALITATIVE Negative (Negative)
== END ==
LOC: M LAB 08:44
DX: F13.20 Sedative, hypnotic or anxiolytic dependence, uncomplicated (principal)
CPT/HCPCS: 84443

== ENCOUNTER 2017-11-26 10:03 | Outpatient (RCR) | payer OTHER | END 2017-12-16 | LOC: M PT 10:03 | DX: Z51.89 Encounter for other specified aftercare (principal); M22.2X1 Patellofemoral disorders, right knee | CPT/HCPCS: 97110 ==

== ENCOUNTER → 2017-12-14 | Outpatient (CLI) | payer OTHER ==
[2017-12-14 15:16] LABS: ALBUMIN 3.5 GM/DL (3.2-5.2); ALBUMIN/GLOBULIN RATIO 0.92 (1.00-1.93); ALKALINE PHOSPHATASE 84 U/L (45-117); ALT/SGPT 26 U/L (12-78); AST/SGOT 18 U/L (7-37); BILIRUBIN,DIRECT < 0.1 MG/DL (0.0-0.2); BILIRUBIN,TOTAL 0.2 MG/DL (0.2-1.0); TOTAL PROTEIN 7.3 GM/DL (6.4-8.2)
[2017-12-19 00:06] LABS: HEPATITIS C QUANTITATION HCV Not Detected IU/mL (.)
== END ==
LOC: M LAB 14:25
DX: B18.2 Chronic viral hepatitis C (principal)
CPT/HCPCS: 80076

== ENCOUNTER 2017-12-17 12:34 | Outpatient (RCR) | payer OTHER | END 2018-01-16 | LOC: M PT 12-19 12:15 | DX: Z47.89 Encounter for other orthopedic aftercare (principal); M22.2X1 Patellofemoral disorders, right knee; M22.2X2 Patellofemoral disorders, left knee | CPT/HCPCS: 97010 ==

== ENCOUNTER 2018-01-17 11:54 | Outpatient (RCR) | payer OTHER | END 2018-02-15 | LOC: M PT 01-22 12:15 | DX: M22.2X1 Patellofemoral disorders, right knee (principal); M22.2X2 Patellofemoral disorders, left knee | CPT/HCPCS: 97110 ==

== ENCOUNTER → 2018-05-24 | Outpatient (REF) | payer OTHER ==
[~2018-05-24] MED LIST changes: +/MOM400 PO; -ACETAMINOPHEN TAB 650MG DOSE (2X325MG) PO; +CARI1TAB7 PO; +CLON0.2T PO; +EMOQTAB PO; +FERR325T3 PO; +FLUO10CA8 PO; +FLUO20CA19 PO; +GABA-1171 PO; +GABA-845 PO; +GABAPOW41 PO; +HYDR50TA70 PO; +HYDROXIZINE PO; +IBUP-1114 PO; +IBUP80TA PO; -MAALOX 30 ML SUSP *UDC PO; +MAPA500T2 PO; +MAVY1TAB PO; +METH10CO PO; +MINI1CAP PO; -MOM 30ML SUSPENSION UDC PO; +NICO4GUM2 PO; +NORT25CA2 PO; +OMEP40CA2 PO; +PREG100CA PO; +PRENTAB74 PO; +PRENTAB9 PO; +PRIL20CA9 PO; +PROZ20CA11 PO; +TRAZ-160 PO; +TRAZ10TA PO; +ZONI100C2 PO
[2018-05-24 22:07] LABS: CHLAMYDIA DNA AMPLIFICATION NEGATIVE (NEGATIVE); GC DNA AMPLIFICATION NEGATIVE (NEGATIVE)
== END ==
LOC: M LAB REF 16:21
PROVIDERS: ATTEND Nurse Practitioner Primary Care
DX: N76.0 Acute vaginitis (principal)

== ENCOUNTER 2020-03-03 17:38 | Emergency (ER) | payer MEDICAID, OTHER ==
[~2020-03-03] VITALS: Ht 157.5 cm; Wt 65.5 kg
[~2020-03-03 17:38] MED LIST changes: -/MOM400 PO; +FLUO10CA16 PO; -FLUO10CA8 PO; -FLUO20CA19 PO; +FLUO20CA22 PO; +MILK10SU PO; +NICO-256 PO; -NICO4GUM2 PO; -OMEP40CA2 PO; +OMEP40CA97 PO; -TRAZ-160 PO; +TRAZ-252 PO; -TRAZ10TA PO; +TRAZ1TAB12 PO; +ZONI100C17 PO; -ZONI100C2 PO
[2020-03-03] MEDS ORDERED: PROZ40CA PO (17:49)
[2020-03-03] MEDS ORDERED: WELL100T2 PO (17:49)
[2020-03-03] MEDS ORDERED: HYDR1TAB33 PO (17:49)
[2020-03-03] MEDS ORDERED: MIRALAX *UNIT DOSE* 17GM PACKET PO STA (19:00)
[2020-03-03] MEDS ORDERED: DOCUSATE SODIUM 100MG CAPSULE PO ONE (19:00)
[2020-03-03] MEDS ORDERED: ANUSOL HC 25MG SUPP PR STA (19:00)
[2020-03-03] MEDS ORDERED: ANUSOL HC CREAM 30GM TOP STA (19:00)
[2020-03-03] MEDS ORDERED: COLA100C5 PO (19:06)
[2020-03-03] MEDS ORDERED: ANUS25SU PR (19:06)
[2020-03-03] MEDS ORDERED: ANUS2.5C2 TOP (19:06)
[2020-03-03] MEDS ORDERED: MIRA3350 PO (19:06)
[2020-03-03 19:13] VITALS: BP 126/74
== END 2020-03-03 19:54 | disposition home or self-care (01) ==
LOC: M ED 17:38
DX: K64.4 Residual hemorrhoidal skin tags (principal); K59.00 Constipation, unspecified; Z86.19 Personal history of other infectious and parasitic diseases; F17.200 Nicotine dependence, unspecified, uncomplicated; F19.10 Other psychoactive substance abuse, uncomplicated

== ENCOUNTER 2020-12-08 06:34 | Emergency (ER) | payer MEDICAID, OTHER ==
[~2020-12-08] VITALS: Ht 157.5 cm; Wt 67.2 kg
[~2020-12-08 06:34] MED LIST changes: +ANUS2.5C2 TOP; +ANUS25SU PR; +COLA100C5 PO; +GABA-283 PO; -GABA-845 PO; +HYDR1TAB33 PO; +MIRA3350 PO; +OMEP40CA4 PO; -OMEP40CA97 PO; +PROZ40CA PO; +WELL100T2 PO
[2020-12-08] MEDS ORDERED: METH10CO3 PO (06:45)
[2020-12-08] MEDS ORDERED: CLONI1TA PO (06:45)
[2020-12-08] MEDS ORDERED: CLON0.3T PO (06:45)
[2020-12-08] MEDS ORDERED: OMEPRAZOLE 20 MG CAP PO ONE (08:05)
[2020-12-08] MEDS ORDERED: GI COCKTAIL 50ML BTL(HYOSCYAMINE/MAALOX/LIDOCAINE VISCOUS)(1:3:1) PO ONE (08:05)
[2020-12-08] MEDS ORDERED: NYSTATIN 500,000 U/5 ML SUSP UDC SS STA (08:05)
[2020-12-08] MEDS ORDERED: NYST50SS PO (09:09)
[2020-12-08] MEDS ORDERED: MAGICMW SSP (09:09)
[2020-12-08] MEDS ORDERED: OMEP-218 PO (09:09)
[2020-12-08 09:32] VITALS: BP 87/52
== END 2020-12-08 09:34 | disposition home or self-care (01) ==
LOC: M ED 06:34
DX: B08.5 Enteroviral vesicular pharyngitis (principal); K20.90 Esophagitis, unspecified without bleeding; R10.13 Epigastric pain; J45.909 Unspecified asthma, uncomplicated; Z86.19 Personal history of other infectious and parasitic diseases; F17.200 Nicotine dependence, unspecified, uncomplicated; Z79.899 Other long term (current) drug therapy

== ENCOUNTER 2021-04-18 17:14 | Inpatient (IN) | payer OTHER ==
[~2021-04-18] VITALS: Ht 170.2 cm; Wt 56.7 kg
[~2021-04-18 17:14] MED LIST changes: +CLON0.3T PO; +CLONI1TA PO; -FLUO10CA16 PO; +FLUO10CA18 PO; +MAGICMW SSP; +METH10CO3 PO; +NYST50SS PO; +OMEP-173 PO
[2021-04-18] MEDS ORDERED: BOOSTRIX/ADACEL VACCINE (DIPHTH/PERTUSS/ACELL/TETANUS) 0.5ML SYR IM ONE (17:30)
[2021-04-18] MEDS ORDERED: DERMABOND TOPICAL SKIN ADHESIVE TOP ONE (17:30)
[2021-04-18 18:24] LABS: HEMATOCRIT 36.5 % (36.0-47.0); HEMOGLOBIN 12.4 g/dl (12.0-15.5); MEAN CORPUSCULAR HEMOGLOBIN 30.4 pg (27.0-33.0); MEAN CORPUSCULAR VOLUME 89.5 fl (80.0-96.0); PLATELET COUNT, AUTOMATED 309 10^3/uL (150-450); RED BLOOD COUNT 4.08 10^6/uL (4.00-5.40)
[2021-04-18 18:38] LABS: HCG, SERUM QUALITATIVE NEGATIVE (NEGATIVE)
[2021-04-18 18:44] LABS: ACETAMINOPHEN LEVEL < 2.0 UG/ML (10.0-30.0); ALBUMIN 4.3 GM/DL (3.2-5.2); ALT/SGPT 40 U/L (12-78); BILIRUBIN,DIRECT 0.2 MG/DL (0.0-0.2); BILIRUBIN,TOTAL 0.4 MG/DL (0.2-1.0); BLOOD UREA NITROGEN 11 MG/DL (7-18); CALCIUM LEVEL 9.3 MG/DL (8.5-10.1); CARBON DIOXIDE LEVEL 28 MEQ/L (21-32); CHLORIDE LEVEL 102 MEQ/L (98-107); CREATININE FOR GFR 0.76 MG/DL (0.55-1.30); ETHYL ALCOHOL (ETHANOL) < 0.003 % (0.000-0.010); GLOMERULAR FILTRATION RATE > 60.0 (>60); GLUCOSE, FASTING 91 MG/DL (70-100); POTASSIUM SERUM 3.9 MEQ/L (3.5-5.1); SALICYLATE LEVEL 4.8 MG/DL (5.0-30.0); SODIUM LEVEL 135 MEQ/L (136-145); TOTAL PROTEIN 7.5 GM/DL (6.4-8.2)
[2021-04-18] MEDS ORDERED: CLON0.2T PO (18:46)
[2021-04-18] MEDS ORDERED: FLUO20CA22 PO (18:46)
[2021-04-18 19:17] LABS: RSV AMPLIFICATION NEGATIVE (NEGATIVE)
[2021-04-18] MEDS ORDERED: OMEP1CAP73 PO (20:43)
[2021-04-18] MEDS ORDERED: NICO4GUM44 MT (20:45)
[2021-04-18] MEDS ORDERED: HOME MED LIST COMPLETE! XX SCH (20:45)
[2021-04-18] MEDS ORDERED: METHADONE 10 MG TAB (S0109) PO ONE (20:50)
[2021-04-19 04:12] LABS: AMPHETAMINES LEVEL URINE POSITIVE (NEGATIVE); BARBITURATES URINE NEGATIVE (NEGATIVE); BENZODIAZEPINES URINE NEGATIVE (NEGATIVE); CANNABINOIDS URINE POSITIVE (NEGATIVE); COCAINE METABOLITE URINE NEGATIVE (NEGATIVE); METHADONE URINE POSITIVE (NEGATIVE); OPIATES URINE POSITIVE (NEGATIVE); PHENCYCLIDINE URINE NEGATIVE (NEGATIVE)
[2021-04-19] MEDS ORDERED: METHADONE 10 MG TAB (S0109) PO SCH (09:00)
[2021-04-19] MEDS ORDERED: MOM 30ML SUSPENSION UDC PO PRN (15:40)
[2021-04-19] MEDS ORDERED: ACETAMINOPHEN TAB 650MG DOSE (2X325MG) PO PRN (15:40)
[2021-04-19] MEDS ORDERED: MAALOX 30 ML SUSP *UDC PO PRN (15:40)
[2021-04-19] MEDS ORDERED: OMEPRAZOLE 20MG CAP PO PRN (15:45)
[2021-04-19 17:41] VITALS: BP 121/79
[2021-04-19] MEDS: traZODone 50 MG TAB PO PRN (20:27)
[2021-04-19] MEDS: cloNIDine 0.2 MG TAB PO PRN (20:29)
[2021-04-20 06:17] VITALS: BP 94/53
[2021-04-20] MEDS ORDERED: NICOTINE 21MG/24HR 1 EA TRANSDERMAL TD SCH (09:00)
[2021-04-20] MEDS: METHADONE 10 MG TAB (S0109) PO SCH (09:03)
[2021-04-20] MEDS: FLUoxetine 20 MG CAP PO SCH (09:04)
[2021-04-20] MEDS ORDERED: ASPIRIN 81 MG CHEW TABLET PO PRN (13:30)
[2021-04-20 16:11] VITALS: BP 103/55
[2021-04-20] MEDS: traZODone 50 MG TAB PO PRN (20:47)
[2021-04-20 20:51] VITALS: BP 128/76
[2021-04-20] MEDS: NICOTINE POLACRILEX 2 MG GUM PO PRN (20:51)
[2021-04-20] MEDS: cloNIDine 0.2 MG TAB PO PRN (20:51)
[2021-04-21 06:33] VITALS: BP 101/53
[2021-04-21] MEDS: NICOTINE POLACRILEX 2 MG GUM PO PRN ×2 (09:04→18:11)
[2021-04-21] MEDS: METHADONE 10 MG TAB (S0109) PO SCH (09:04)
[2021-04-21] MEDS: FLUoxetine 20 MG CAP PO SCH (09:04)
[2021-04-21 18:12] VITALS: BP 108/53
[2021-04-22 06:40] VITALS: BP 95/55
[2021-04-22] MEDS: NICOTINE POLACRILEX 2 MG GUM PO PRN ×3 (09:06→17:49)
[2021-04-22] MEDS: FLUoxetine 20 MG CAP PO SCH (09:07)
[2021-04-22] MEDS: METHADONE 10 MG TAB (S0109) PO SCH (09:07)
[2021-04-22 16:20] VITALS: BP 110/60
[2021-04-22] MEDS: hydrOXYzine 50 MG TAB PO PRN (17:48)
[2021-04-22] MEDS: MIRTAZAPINE 7.5MG PER 1/2 TABLET PO SCH (21:00)
[2021-04-22] MEDS ORDERED: cloNIDine 0.2 MG TAB PO SCH (21:00)
[2021-04-23 06:16] VITALS: BP 107/67
[2021-04-23] MEDS: METHADONE 10 MG TAB (S0109) PO SCH (09:28)
[2021-04-23] MEDS: NICOTINE POLACRILEX 2 MG GUM PO PRN ×3 (09:29→19:32)
[2021-04-23] MEDS: FLUoxetine 20 MG CAP PO SCH (09:29)
[2021-04-23 15:52] VITALS: BP 100/57
[2021-04-23] MEDS: hydrOXYzine 50 MG TAB PO PRN (17:44)
[2021-04-23] MEDS: MIRTAZAPINE 7.5MG PER 1/2 TABLET PO SCH (20:28)
[2021-04-24 06:23] VITALS: BP 132/73
[2021-04-24] MEDS: METHADONE 10 MG TAB (S0109) PO SCH (09:26)
[2021-04-24] MEDS: FLUoxetine 20 MG CAP PO SCH (09:26)
[2021-04-24] MEDS: NICOTINE POLACRILEX 2 MG GUM PO PRN ×4 (12:30→19:45)
[2021-04-24] MEDS: hydrOXYzine 50 MG TAB PO PRN (14:48)
[2021-04-24 16:27] VITALS: BP 119/78
[2021-04-24] MEDS: MIRTAZAPINE 7.5MG PER 1/2 TABLET PO SCH (20:13)
[2021-04-25 06:53] VITALS: BP 118/75
[2021-04-25] MEDS ORDERED: FLUO40CA PO (08:40)
[2021-04-25] MEDS ORDERED: FLUO-96 PO (08:40)
[2021-04-25] MEDS ORDERED: HYDR50TA70 PO (08:41)
[2021-04-25] MEDS ORDERED: MIRT-62 PO (08:41)
[2021-04-25] MEDS: METHADONE 10 MG TAB (S0109) PO SCH (08:45)
[2021-04-25] MEDS: NICOTINE POLACRILEX 2 MG GUM PO PRN ×2 (08:45→10:50)
[2021-04-25] MEDS: FLUoxetine 20 MG CAP PO SCH (08:45)
[2021-04-25] MEDS: hydrOXYzine 50 MG TAB PO PRN (10:50)
== END 2021-04-25 13:03 | disposition home or self-care (01) | DRG 751 ==
LOC: M ED 17:14 → M ED INP 04-19 15:37 → M PSY 04-19 16:28
PROVIDERS: ADMIT Student in an Organized Health Care Education/Training Program; ATTEND Student in an Organized Health Care Education/Training Program
DX: F33.1 Major depressive disorder, recurrent, moderate (principal); R45.851 Suicidal ideations; F43.10 Post-traumatic stress disorder, unspecified; F11.10 Opioid abuse, uncomplicated; F17.210 Nicotine dependence, cigarettes, uncomplicated; F12.10 Cannabis abuse, uncomplicated; F60.89 Other specific personality disorders; F41.9 Anxiety disorder, unspecified; Z20.822 Contact with and (suspected) exposure to COVID-19; Z91.14 Patient's other noncompliance with medication regimen; Z63.0 Problems in relationship with spouse or partner; Z63.8 Other specified problems related to primary support group; Z91.51 Personal history of suicidal behavior; Z62.810 Personal history of physical and sexual abuse in childhood; Z62.811 Personal history of psychological abuse in childhood; Z79.899 Other long term (current) drug therapy; R01.1 Cardiac murmur, unspecified

== ENCOUNTER → 2021-09-20 | Outpatient (REF) | payer OTHER ==
[~2021-09-20] MED LIST changes: +FLUO-96 PO; +FLUO40CA PO; +MIRT-62 PO; +NICO4GUM44 MT; +OMEP1CAP73 PO; -ZONI100C17 PO; +ZONI100C67 PO
[2021-09-20 18:18] LABS: HEMATOCRIT 35.3 % (36.0-47.0); HEMOGLOBIN 11.9 g/dl (12.0-15.5); MEAN CORPUSCULAR HEMOGLOBIN 30.7 pg (27.0-33.0); MEAN CORPUSCULAR HGB CONC 33.7 g/dl (32.0-36.5); PLATELET COUNT, AUTOMATED 242 10^3/uL (150-450); RED BLOOD COUNT 3.88 10^6/uL (4.00-5.40); WHITE BLOOD COUNT 11.6 10^3/uL (4.0-10.0)
[2021-09-20 22:41] LABS: HCG, SERUM QUANTITATIVE 59342 MIU/ML; HEPATITIS B SURFACE ANTIGEN NEGATIVE (NEGATIVE)
[2021-09-20 22:45] LABS: HEPATITIS C VIRUS ABY INDEX > 11.0 INDEX (<0.8)
[2021-09-20 23:08] LABS: HIV 1&2 SCREEN CENTAUR NEGATIVE (NEGATIVE)
== END ==
LOC: M LAB REF 16:48
PROVIDERS: ATTEND Obstetrics & Gynecology
DX: O36.80X0 Pregnancy with inconclusive fetal viability, not applicable or unspecified (principal); Z32.01 Encounter for pregnancy test, result positive

== ENCOUNTER 2021-10-01 13:09 | Outpatient (CLI) | payer OTHER ==
[~2021-10-01] VITALS: Ht 157.5 cm; Wt 64.0 kg
[2021-10-01 13:25] VITALS: BP 103/50
[2021-10-01] MEDS ORDERED: PRENTAB9 PO (13:36)
[2021-10-01] MEDS ORDERED: HOME MED LIST COMPLETE! XX SCH (13:40)
[2021-10-01] MEDS ORDERED: ACETAMINOPHEN 500 MG TAB PO ONE (15:00)
[2021-10-01] MEDS ORDERED: NITR-67 PO (15:10)
== END 2021-10-01 15:38 | disposition home or self-care (01) ==
LOC: M LDO 13:09
PROVIDERS: ATTEND Obstetrics & Gynecology
DX: O26.852 Spotting complicating pregnancy, second trimester (principal); O26.892 Other specified pregnancy related conditions, second trimester; R25.2 Cramp and spasm; Z3A.20 20 weeks gestation of pregnancy

== ENCOUNTER 2021-10-07 20:01 | Emergency (ER) | payer OTHER ==
[~2021-10-07] VITALS: Ht 157.5 cm; Wt 64.0 kg
[~2021-10-07 20:01] MED LIST changes: +NITR-67 PO
[2021-10-07] MEDS ORDERED: BUSP5TA (20:12)
[2021-10-07 20:45] VITALS: BP 115/61
[2021-10-07 21:15] LABS: BASO % 0.2 % (0.0-1.0); EOS # 0.1 10^3/uL (0.0-0.5); EOS % 0.6 % (0.0-3.0); HEMATOCRIT 36.3 % (36.0-47.0); HEMOGLOBIN 12.7 g/dl (12.0-15.5); LYMPH # 1.2 10^3/uL (1.5-5.0); MEAN CORPUSCULAR HEMOGLOBIN 31.4 pg (27.0-33.0); MEAN CORPUSCULAR VOLUME 89.9 fl (80.0-96.0); MONO # 0.7 10^3/uL (0.0-0.8); MONO % 5.4 % (2.0-8.0); NEUTROPHILS # 10.1 10^3/uL (1.5-8.5); NEUTROPHILS % 83.4 % (36.0-66.0); PLATELET COUNT, AUTOMATED 321 10^3/uL (150-450); RED BLOOD COUNT 4.04 10^6/uL (4.00-5.40); WHITE BLOOD COUNT 12.1 10^3/uL (4.0-10.0)
[2021-10-07 22:07] LABS: ACETAMINOPHEN LEVEL < 2.0 UG/ML (10.0-30.0); ALBUMIN 3.8 GM/DL (3.2-5.2); ALT/SGPT 22 U/L (12-78); BILIRUBIN,DIRECT 0.2 MG/DL (0.0-0.2); BILIRUBIN,TOTAL 0.5 MG/DL (0.2-1.0); BLOOD UREA NITROGEN 21 MG/DL (7-18); CALCIUM LEVEL 9.5 MG/DL (8.5-10.1); CARBON DIOXIDE LEVEL 22 MEQ/L (21-32); CHLORIDE LEVEL 110 MEQ/L (98-107); CREATININE FOR GFR 0.75 MG/DL (0.55-1.30); ETHYL ALCOHOL (ETHANOL) 0.005 % (0.000-0.010); GLOMERULAR FILTRATION RATE > 60.0 (>60); GLUCOSE, FASTING 102 MG/DL (70-100); HCG, SERUM QUANTITATIVE 44074 MIU/ML; POTASSIUM SERUM 3.7 MEQ/L (3.5-5.1); SALICYLATE LEVEL 4.1 MG/DL (5.0-30.0); SODIUM LEVEL 141 MEQ/L (136-145); THYROID STIMULATING HORMONE 0.887 uIU/ML (0.358-3.740); TOTAL PROTEIN 7.3 GM/DL (6.4-8.2)
== END 2021-10-07 23:03 | disposition left against medical advice (07) ==
LOC: EDBD 20:01 → M ED 20:01
DX: R41.89 Other symptoms and signs involving cognitive functions and awareness (principal); Z3A.20 20 weeks gestation of pregnancy; Z53.9 Procedure and treatment not carried out, unspecified reason; O99.332 Smoking (tobacco) complicating pregnancy, second trimester; Z79.899 Other long term (current) drug therapy; Z91.018 Allergy to other foods

== ENCOUNTER → 2022-01-09 | Outpatient (CLI) | payer OTHER ==
[~2022-01-09] MED LIST changes: +BUSP5TA
[2022-01-09 12:24] LABS: HEMATOCRIT 32.9 % (36.0-47.0); HEMOGLOBIN 10.9 g/dl (12.0-15.5); MEAN CORPUSCULAR HEMOGLOBIN 31.8 pg (27.0-33.0); MEAN CORPUSCULAR HGB CONC 33.1 g/dl (32.0-36.5); MEAN CORPUSCULAR VOLUME 95.9 fl (80.0-96.0); PLATELET COUNT, AUTOMATED 222 10^3/uL (150-450); RED BLOOD COUNT 3.43 10^6/uL (4.00-5.40); WHITE BLOOD COUNT 9.1 10^3/uL (4.0-10.0)
[2022-01-09 12:30] LABS: GC DNA AMPLIFICATION NEGATIVE (NEGATIVE)
[2022-01-09 13:22] LABS: ALBUMIN 2.7 GM/DL (3.2-5.2); ALT/SGPT 17 U/L (12-78); BILIRUBIN,TOTAL 0.2 MG/DL (0.2-1.0); BLOOD UREA NITROGEN 8 MG/DL (7-18); CALCIUM LEVEL 8.4 MG/DL (8.5-10.1); CARBON DIOXIDE LEVEL 29 MEQ/L (21-32); CHLORIDE LEVEL 102 MEQ/L (98-107); GLOMERULAR FILTRATION RATE > 60.0 (>60); GLUCOSE, FASTING 92 MG/DL (70-100); POTASSIUM SERUM 3.6 MEQ/L (3.5-5.1); SODIUM LEVEL 136 MEQ/L (136-145); TOTAL PROTEIN 6.1 GM/DL (6.4-8.2)
[2022-01-09 14:01] LABS: HCG, SERUM QUALITATIVE POSITIVE (NEGATIVE)
[2022-01-09 14:36] LABS: HEPATITIS B SURFACE ANTIGEN NEGATIVE (NEGATIVE)
[2022-01-09 15:04] LABS: HIV 1&2 SCREEN CENTAUR NEGATIVE (NEGATIVE)
[2022-01-09 15:38] LABS: HEPATITIS C VIRUS ABY INDEX > 11.0 INDEX (<0.8)
== END ==
LOC: M LAB 10:09
PROVIDERS: ATTEND Family Medicine
DX: F11.20 Opioid dependence, uncomplicated (principal)
CPT/HCPCS: 36415; 80053; 84703; 85027; 86780; 86803; 87340; 87389; 87522; 87810; 87850; G0480

== ENCOUNTER → 2022-01-09 | Outpatient (CLI) | payer OTHER ==
[2022-01-09 12:16] LABS: HEMATOCRIT 32.6 % (36.0-47.0); HEMOGLOBIN 10.8 g/dl (12.0-15.5); MEAN CORPUSCULAR HEMOGLOBIN 31.9 pg (27.0-33.0); MEAN CORPUSCULAR HGB CONC 33.1 g/dl (32.0-36.5); MEAN CORPUSCULAR VOLUME 96.2 fl (80.0-96.0); PLATELET COUNT, AUTOMATED 229 10^3/uL (150-450); RED BLOOD COUNT 3.39 10^6/uL (4.00-5.40); WHITE BLOOD COUNT 8.8 10^3/uL (4.0-10.0)
== END ==
LOC: M LAB 10:03
PROVIDERS: ATTEND Obstetrics & Gynecology
DX: Z34.82 Encounter for supervision of other normal pregnancy, second trimester (principal)

== ENCOUNTER → 2022-01-10 | Outpatient (CLI) | payer OTHER | LOC: M LAB 08:50 | PROVIDERS: ATTEND Family Medicine | DX: F11.20 Opioid dependence, uncomplicated (principal) | CPT/HCPCS: 36415; G0480 ==

== ENCOUNTER → 2022-02-28 | Outpatient (REF) | payer OTHER | LOC: M LAB REF 16:18 | PROVIDERS: ATTEND Obstetrics & Gynecology | DX: Z34.83 Encounter for supervision of other normal pregnancy, third trimester (principal) ==

== ENCOUNTER 2022-03-07 05:04 | Inpatient (IN) | payer OTHER ==
[~2022-03-07] VITALS: Ht 162.6 cm; Wt 71.8 kg
[2022-03-07] VITALS (8 sets, daily range): BP systolic 126–152; BP diastolic 67–85
[2022-03-07 05:41] LABS: HEMATOCRIT 32.6 % (36.0-47.0); HEMOGLOBIN 10.9 g/dl (12.0-15.5); MEAN CORPUSCULAR HEMOGLOBIN 31.2 pg (27.0-33.0); MEAN CORPUSCULAR HGB CONC 33.4 g/dl (32.0-36.5); MEAN CORPUSCULAR VOLUME 93.4 fl (80.0-96.0); PLATELET COUNT, AUTOMATED 123 10^3/uL (150-450); RED BLOOD COUNT 3.49 10^6/uL (4.00-5.40); WHITE BLOOD COUNT 7.1 10^3/uL (4.0-10.0)
[2022-03-07] MEDS ORDERED: ACETAMINOPHEN 500 MG TAB PO PRN (07:05)
[2022-03-07] MEDS ORDERED: IBUPROFEN 600MG TAB PO PRN (07:05)
[2022-03-07] MEDS ORDERED: DIBUCAINE 1% OINTMENT 30GM TOP PRN (07:05)
[2022-03-07] MEDS ORDERED: DOCUSATE SODIUM 100MG CAPSULE PO PRN (07:05)
[2022-03-07] MEDS ORDERED: METHYLERGONOVINE MALEATE 0.2 MG TAB PO PRN (07:05)
[2022-03-07] MEDS ORDERED: RHOGAM 300 MCG (1500 IU) INJ (J2790) IM SCH (07:05)
[2022-03-07] MEDS ORDERED: MOM 30ML SUSPENSION UDC PO PRN (07:05)
[2022-03-07] MEDS ORDERED: ANUSOL HC CREAM 30GM TOP PRN (07:05)
[2022-03-07] MEDS ORDERED: ACETAMINOPHEN TAB 650MG DOSE (2X325MG) PO PRN (07:05)
[2022-03-07] MEDS: PRENATAL VITAMINS CHEWABLE TABLET PO SCH (07:41)
[2022-03-07] MEDS: IBUPROFEN 800 MG TAB PO PRN (07:42)
[2022-03-07] MEDS ORDERED: PREN1TAB25 PO (07:59)
[2022-03-07] MEDS ORDERED: NICO-314 PO (07:59)
[2022-03-07] MEDS ORDERED: methodone PO (07:59)
[2022-03-07] MEDS ORDERED: BUSP10TA PO (07:59)
[2022-03-07] MEDS ORDERED: FLUO20CA22 PO (07:59)
[2022-03-07] MEDS ORDERED: HOME MED LIST COMPLETE! XX SCH (08:00)
[2022-03-07] MEDS ORDERED: PILL CUTTER 1 EACH XX PRN (09:00)
[2022-03-07] MEDS: METHADONE 10MG TAB PO SCH (10:13)
[2022-03-07] MEDS ORDERED: FLUO-96 PO (12:25)
[2022-03-08] MEDS: IBUPROFEN 800 MG TAB PO PRN ×2 (03:57→12:47)
[2022-03-08 06:20] VITALS: BP 99/56
[2022-03-08] MEDS: PRENATAL VITAMINS CHEWABLE TABLET PO SCH (09:09)
[2022-03-08] MEDS: METHADONE 10MG TAB PO SCH (09:12)
[2022-03-08] MEDS ORDERED: CEPACOL LOZENGE PO PRN (14:55)
[2022-03-08 18:00] VITALS: BP 108/56
[2022-03-09 05:30] VITALS: BP 115/72
[2022-03-09] MEDS ORDERED: MEASLES,MUMPS,RUBELLA VACCINE INJ (MMR-II) (90707) SC.IMMUN ONE (09:00)
[2022-03-09] MEDS: METHADONE 10MG TAB PO SCH ×2 (09:59→10:44)
[2022-03-09] MEDS: PRENATAL VITAMINS CHEWABLE TABLET PO SCH (10:00)
[2022-03-09 18:00] VITALS: BP 100/56
[2022-03-10 06:00] VITALS: BP 100/61
[2022-03-10] MEDS: METHADONE 10MG TAB PO SCH (09:40)
[2022-03-10] MEDS: PRENATAL VITAMINS CHEWABLE TABLET PO SCH (09:40)
== END 2022-03-10 11:52 | disposition home or self-care (01) | DRG 561 ==
LOC: M LDI 05:04 → M OBS 09:45
PROVIDERS: ADMIT Advanced Practice Midwife; ATTEND Advanced Practice Midwife
DX: Z39.0 Encounter for care and examination of mother immediately after delivery (principal)

== ENCOUNTER 2022-03-12 10:09 | Inpatient (IN) | payer OTHER ==
[~2022-03-12] VITALS: Ht 157.5 cm; Wt 62.4 kg
[2022-03-12] VITALS (10 sets, daily range): BP systolic 116–124; BP diastolic 75–87
[~2022-03-12 10:09] MED LIST changes: +BUSP10TA PO; +NICO-314 PO; +PREN1TAB25 PO; +methodone PO
[2022-03-12] MEDS ORDERED: NS 500 ML IV ONE (10:15)
[2022-03-12] MEDS ORDERED: IPRATROPIUM 0.5MG/ALBUTEROL 2.5MG INH SOL UD 3ML (DUONEB) NEB ONE (10:15)
[2022-03-12] MEDS ORDERED: ALBUTEROL SULFATE 2.5MG/0.5ML INH NEB SOLN INH ONE (10:15)
[2022-03-12] MEDS ORDERED: methylPREDNISolone 125MG 2ML VIAL IV ONE (10:15)
[2022-03-12 10:40] LABS: HEMATOCRIT 40.3 % (36.0-47.0); HEMOGLOBIN 13.3 g/dl (12.0-15.5); MEAN CORPUSCULAR HEMOGLOBIN 30.6 pg (27.0-33.0); MEAN CORPUSCULAR VOLUME 92.6 fl (80.0-96.0); RED BLOOD COUNT 4.35 10^6/uL (4.00-5.40); WHITE BLOOD COUNT 17.1 10^3/uL (4.0-10.0)
[2022-03-12 10:41] LABS: PLATELET COUNT, AUTOMATED 206 10^3/uL (150-450)
[2022-03-12] MEDS ORDERED: cefTRIAXone SOD 1 GM in D5W MINI-BAG PLUS 50 ML IV ONE (10:50)
[2022-03-12] MEDS ORDERED: AZITHROMYCIN INJ 500 MG, VIAL MATE ADAPTER 1 EACH in D5W 250 ML IV ONE (10:50)
[2022-03-12 10:51] LABS: INR 1.2; PROTHROMBIN TIME 15.5 SECONDS (12.5-14.5)
[2022-03-12 10:56] LABS: ATYPICAL LYMPH 1 % (0-5); LYMPHOCYTES 11 % (16-44); MONOCYTES 4 % (0-5); NEUTROPHILS 75 % (28-66)
[2022-03-12 10:58] LABS: PLATELET ESTIMATE NORMAL (NORMAL)
[2022-03-12 11:05] LABS: CK-MB VALUE MASS 7.2 NG/ML (<3.6)
[2022-03-12 11:08] LABS: ALBUMIN 1.9 G/DL (3.2-5.2); ALKALINE PHOSPHATASE 242 U/L (46-116); ALT/SGPT 17 U/L (7.0-40); AST/SGOT 63 U/L (<34); BILIRUBIN,DIRECT 0.2 MG/DL (<0.4); BILIRUBIN,TOTAL 0.3 MG/DL (0.3-1.2); BLOOD UREA NITROGEN 24 MG/DL (9-23); CARBON DIOXIDE LEVEL 20 MMOL/L (20-31); CHLORIDE LEVEL 106 MMOL/L (98-107); CPK CREATINE PHOSPHOKINASE 96 U/L (34-145); CREATININE FOR GFR 1.03 MG/DL (0.55-1.30); GLOMERULAR FILTRATION RATE > 60.0 (>60); GLUCOSE, FASTING 96 MG/DL (60-100); POTASSIUM SERUM 4.9 MMOL/L (3.5-5.1); SODIUM LEVEL 142 MMOL/L (136-145)
[2022-03-12 11:09] LABS: THYROID STIMULATING HORMONE 0.671 uIU/ML (0.55-4.78); THYROXINE (T4) 18.1 UG/DL (4.5-10.9)
[2022-03-12] MEDS ORDERED: FUROSEMIDE 20MG/2ML VIAL IV ONE (11:10)
[2022-03-12] MEDS ORDERED: PREN1CHW PO (11:27)
[2022-03-12] MEDS ORDERED: FLUO20CA22 PO (11:27)
[2022-03-12] MEDS ORDERED: HOME MED LIST COMPLETE! XX SCH (11:30)
[2022-03-12] MEDS ORDERED: ISOVUE-370 76% 100ML VIAL As Ordered ONE (11:43)
[2022-03-12 13:06] LABS: CK-MB VALUE MASS 7.6 NG/ML (<3.6)
[2022-03-12 13:08] LABS: MB/CK RELATIVE INDEX 8.35 (< OR =4)
[2022-03-12] MEDS ORDERED: ONDANSETRON 4MG 2ML VIAL IV ONE (13:10)
[2022-03-12] MEDS ORDERED: HEPARIN SOD (PORCINE) 5000UNITS/ML 1ML VIAL/SYRINGE SC SCH (14:00)
[2022-03-12] MEDS ORDERED: LevoFLOXacin IV 500 MG in IV 1 EA IV ONE (15:00)
[2022-03-12] MEDS ORDERED: ASPIRIN 325 MG TAB PO ONE (15:00)
[2022-03-12] MEDS: PANTOPRAZOLE 40MG VIAL IV SCH (15:11)
[2022-03-12] MEDS: NICOTINE 7 MG/24 HR TRANSDERMAL TD SCH (15:19)
[2022-03-12 15:40] LABS: APPEARANCE, URINE MANUAL CLEAR (CLEAR); COLOR, URINE MANUAL YELLOW (YELLOW)
[2022-03-12 15:42] LABS: SPECIFIC GRAVITY,URINE MANUAL 1.015 (1.002-1.035)
[2022-03-12 15:43] LABS: BILIRUBIN, URINE MANUAL NEGATIVE (NEGATIVE); BLOOD URINE MANUAL TRACE (NEGATIVE); GLUCOSE, URINE (UA) MANUAL NEGATIVE (NEGATIVE); KETONE, URINE MANUAL NEGATIVE (NEGATIVE); LEUKOCYTE ESTERASE, URINE MAN NEGATIVE (NEGATIVE); NITRITE, URINE MANUAL NEGATIVE (NEGATIVE); PROTEIN, URINE MANUAL 1+ mg/dL (NEGATIVE); UROBILINOGEN, URINE MANUAL NORMAL (NORMAL)
[2022-03-12] MEDS: IPRATROPIUM 0.5MG/ALBUTEROL 2.5MG INH SOL UD 3ML (DUONEB) NEB SCH ×3 (15:48→23:39)
[2022-03-12 15:51] LABS: SQUAMOUS EPITHELIAL CELL URINE SMALL AMOUNT /hpf (SMALL AMT)
[2022-03-12 15:52] LABS: BACTERIA, URINE SMALL AMOUNT; HYALINE CAST, URINE NONE SEEN /lpf (0-1)
[2022-03-12 18:38] LABS: ABG BASE EXCESS -2.1 (-2.0-2.0); ABG HCO3 21.5 MEQ/L (22.0-26.0); ABG O2 SATURATION 97.6 % (95.0-99.0); ABG PARTIAL PRESSURE CO2 32.8 mmHg (35.0-45.0); ABG PARTIAL PRESSURE O2 103.3 mmHg (75.0-100.0); ABG STANDARD HCO3 22.8 MEQ/L (22.0-26.0); ABG TOTAL CO2 22.5 MEQ/L (22.0-29.0); ABG pH (ARTERIAL) 7.434 UNITS (7.350-7.450)
[2022-03-12] MEDS ORDERED: HEPARIN SOD (PORCINE) 5000UNITS/ML 1ML VIAL/SYRINGE IV PRN ×2 (19:20→19:45)
[2022-03-12] MEDS ORDERED: HEPARIN DRIP 25,000 UNITS in IV 1 EA IV SCH (19:45)
[2022-03-13] VITALS (23 sets, daily range): BP systolic 114–162; BP diastolic 66–99
[2022-03-13] MEDS: IPRATROPIUM 0.5MG/ALBUTEROL 2.5MG INH SOL UD 3ML (DUONEB) NEB SCH ×6 (03:02→23:36)
[2022-03-13 03:14] LABS: INR 1.07; PROTHROMBIN TIME 14.1 SECONDS (12.5-14.5)
[2022-03-13 03:15] LABS: PARTIAL THROMBOPLASTIN TIME 41.8 SECONDS (24.8-34.2)
[2022-03-13 05:37] LABS: MEAN CORPUSCULAR HEMOGLOBIN 31.2 pg (27.0-33.0); MEAN CORPUSCULAR HGB CONC 33.9 g/dl (32.0-36.5); PLATELET COUNT, AUTOMATED 149 10^3/uL (150-450); RED BLOOD COUNT 3.37 10^6/uL (4.00-5.40)
[2022-03-13 05:43] LABS: MAGNESIUM LEVEL 2.4 MG/DL (1.8-2.4)
[2022-03-13 05:45] LABS: CPK CREATINE PHOSPHOKINASE 76 U/L (34-145)
[2022-03-13 05:50] LABS: ABG BASE EXCESS -0.2 (-2.0-2.0); ABG HCO3 24.4 MEQ/L (22.0-26.0); ABG PARTIAL PRESSURE CO2 39.9 mmHg (35.0-45.0); ABG PARTIAL PRESSURE O2 78.7 mmHg (75.0-100.0); ABG STANDARD HCO3 24.3 MEQ/L (22.0-26.0); ABG TOTAL CO2 25.7 MEQ/L (22.0-29.0); ABG pH (ARTERIAL) 7.405 UNITS (7.350-7.450)
[2022-03-13 05:52] LABS: ALBUMIN 1.4 G/DL (3.2-5.2); ALKALINE PHOSPHATASE 176 U/L (46-116); ALT/SGPT 14 U/L (7.0-40); AST/SGOT 37 U/L (<34); BILIRUBIN,TOTAL 0.2 MG/DL (0.3-1.2); BLOOD UREA NITROGEN 28 MG/DL (9-23); CALCIUM LEVEL 7.5 MG/DL (8.5-10.1); CARBON DIOXIDE LEVEL 25 MMOL/L (20-31); CHLORIDE LEVEL 104 MMOL/L (98-107); CK-MB VALUE MASS 6.4 NG/ML (<3.6); CREATININE FOR GFR 0.89 MG/DL (0.55-1.30); GLOMERULAR FILTRATION RATE > 60.0 (>60); GLUCOSE, FASTING 160 MG/DL (60-100); HEMOGLOBIN 10.5 g/dl (12.0-15.5); MB/CK RELATIVE INDEX 8.42 (< OR =4); SODIUM LEVEL 138 MMOL/L (136-145); TOTAL PROTEIN 5.2 G/DL (5.7-8.2)
[2022-03-13 07:03] LABS: ATYPICAL LYMPH 1 % (0-5); LYMPHOCYTES 9 % (16-44); METAMYELOCYTES 1 % (0-0); MONOCYTES 7 % (0-5); NEUTROPHILS 80 % (28-66)
[2022-03-13 07:04] LABS: ANISOCYTOSIS 1+; PLATELET ESTIMATE NORMAL (NORMAL)
[2022-03-13] MEDS: KCL 10MEQ/100ML SWI (KRUN) 10 MEQ in IV 1 EA IV SCH ×5 (07:23→13:18)
[2022-03-13] MEDS ORDERED: FUROSEMIDE 20MG/2ML VIAL IV ONE (08:15)
[2022-03-13] MEDS: PANTOPRAZOLE 40MG VIAL IV SCH (08:31)
[2022-03-13] MEDS: cefTRIAXone SOD 1 GM in D5W MINI-BAG PLUS 50 ML IV SCH (08:31)
[2022-03-13] MEDS: methylPREDNISolone 125MG 2ML VIAL IV SCH (08:36)
[2022-03-13] MEDS: NICOTINE 7 MG/24 HR TRANSDERMAL TD SCH (10:15)
[2022-03-13] MEDS: METHADONE 10MG TAB PO SCH (10:15)
[2022-03-13] MEDS: AZITHROMYCIN INJ 500 MG, VIAL MATE ADAPTER 1 EACH in NS 250 ML IV SCH (10:15)
[2022-03-13 12:49] LABS: MB/CK RELATIVE INDEX 9.52 (< OR =4)
[2022-03-13 13:48] LABS: TOTAL PROTEIN,RANDOM URINE 81.8 MG/DL (0.0-14.0)
[2022-03-14] VITALS (22 sets, daily range): BP systolic 129–162; BP diastolic 75–97
[2022-03-14] MEDS: IPRATROPIUM 0.5MG/ALBUTEROL 2.5MG INH SOL UD 3ML (DUONEB) NEB SCH ×5 (04:58→19:24)
[2022-03-14 05:30] LABS: HEMATOCRIT 31.5 % (36.0-47.0); HEMOGLOBIN 10.5 g/dl (12.0-15.5); MEAN CORPUSCULAR HEMOGLOBIN 31.1 pg (27.0-33.0); MEAN CORPUSCULAR HGB CONC 33.3 g/dl (32.0-36.5); MEAN CORPUSCULAR VOLUME 93.2 fl (80.0-96.0); PLATELET COUNT, AUTOMATED 133 10^3/uL (150-450); RED BLOOD COUNT 3.38 10^6/uL (4.00-5.40); WHITE BLOOD COUNT 13.4 10^3/uL (4.0-10.0)
[2022-03-14 05:52] LABS: EOSINOPHILS 1 % (0-3); LYMPHOCYTES 10 % (16-44); MONOCYTES 11 % (0-5); NEUTROPHILS 77 % (28-66); PLATELET ESTIMATE DECREASED (NORMAL)
[2022-03-14 05:53] LABS: ANISOCYTOSIS 1+
[2022-03-14 05:59] LABS: ABG BASE EXCESS -0.8 (-2.0-2.0); ABG HCO3 23.6 MEQ/L (22.0-26.0); ABG O2 SATURATION 96.2 % (95.0-99.0); ABG PARTIAL PRESSURE CO2 38.3 mmHg (35.0-45.0); ABG PARTIAL PRESSURE O2 90.4 mmHg (75.0-100.0); ABG STANDARD HCO3 23.8 MEQ/L (22.0-26.0); ABG TOTAL CO2 24.8 MEQ/L (22.0-29.0); ABG pH (ARTERIAL) 7.408 UNITS (7.350-7.450)
[2022-03-14 07:05] LABS: ALBUMIN 1.8 G/DL (3.2-5.2); ALKALINE PHOSPHATASE 178 U/L (46-116); ALT/SGPT 14 U/L (7.0-40); AST/SGOT 28 U/L (<34); BILIRUBIN,TOTAL 0.2 MG/DL (0.3-1.2); BLOOD UREA NITROGEN 34 MG/DL (9-23); CALCIUM LEVEL 7.9 MG/DL (8.5-10.1); CARBON DIOXIDE LEVEL 22 MMOL/L (20-31); CHLORIDE LEVEL 105 MMOL/L (98-107); CK-MB VALUE MASS 2.5 NG/ML (<3.6); CPK CREATINE PHOSPHOKINASE 48 U/L (34-145); CREATININE FOR GFR 0.84 MG/DL (0.55-1.30); GLOMERULAR FILTRATION RATE > 60.0 (>60); GLUCOSE, FASTING 76 MG/DL (60-100); MAGNESIUM LEVEL 2.3 MG/DL (1.8-2.4); POTASSIUM SERUM 4.1 MMOL/L (3.5-5.1); SODIUM LEVEL 140 MMOL/L (136-145); TOTAL PROTEIN 5.3 G/DL (5.7-8.2)
[2022-03-14] MEDS ORDERED: FUROSEMIDE 20MG/2ML VIAL IV ONE (08:30)
[2022-03-14] MEDS: ASPIRIN 81MG ENTERIC TABLET PO SCH (09:07)
[2022-03-14] MEDS: NICOTINE 7 MG/24 HR TRANSDERMAL TD SCH (09:08)
[2022-03-14] MEDS: PANTOPRAZOLE 40MG VIAL IV SCH (09:09)
[2022-03-14] MEDS: METHADONE 10MG TAB PO SCH (09:09)
[2022-03-14] MEDS: methylPREDNISolone 125MG 2ML VIAL IV SCH (09:09)
[2022-03-14] MEDS: cefTRIAXone SOD 1 GM in D5W MINI-BAG PLUS 50 ML IV SCH (09:12)
[2022-03-14] MEDS: AZITHROMYCIN INJ 500 MG, VIAL MATE ADAPTER 1 EACH in NS 250 ML IV SCH (10:14)
[2022-03-14] MEDS ORDERED: RACEPINEPHrine 2.25% UD INHAL INH ONE (13:15)
[2022-03-15] VITALS (18 sets, daily range): BP systolic 109–151; BP diastolic 68–99
[2022-03-15] MEDS: IPRATROPIUM 0.5MG/ALBUTEROL 2.5MG INH SOL UD 3ML (DUONEB) NEB SCH ×7 (03:32→23:08)
[2022-03-15 05:27] LABS: HEMATOCRIT 34.2 % (36.0-47.0); HEMOGLOBIN 11.2 g/dl (12.0-15.5); MEAN CORPUSCULAR HEMOGLOBIN 30.7 pg (27.0-33.0); MEAN CORPUSCULAR HGB CONC 32.7 g/dl (32.0-36.5); MEAN CORPUSCULAR VOLUME 93.7 fl (80.0-96.0); PLATELET COUNT, AUTOMATED 144 10^3/uL (150-450); RED BLOOD COUNT 3.65 10^6/uL (4.00-5.40); WHITE BLOOD COUNT 12.2 10^3/uL (4.0-10.0)
[2022-03-15 06:01] LABS: ATYPICAL LYMPH 7 % (0-5); LYMPHOCYTES 14 % (16-44); METAMYELOCYTES 1 % (0-0); MONOCYTES 3 % (0-5); MYELOCYTES 3 % (0-0); NEUTROPHILS 72 % (28-66)
[2022-03-15 06:02] LABS: ANISOCYTOSIS 1+; PLATELET ESTIMATE NORMAL (NORMAL); POLYCHROMASIA 1+
[2022-03-15 06:06] LABS: ALBUMIN 1.8 G/DL (3.2-5.2); ALKALINE PHOSPHATASE 149 U/L (46-116); ALT/SGPT 13 U/L (7.0-40); AST/SGOT 31 U/L (<34); BILIRUBIN,TOTAL 0.3 MG/DL (0.3-1.2); BLOOD UREA NITROGEN 30 MG/DL (9-23); CALCIUM LEVEL 7.9 MG/DL (8.5-10.1); CARBON DIOXIDE LEVEL 30 MMOL/L (20-31); CHLORIDE LEVEL 102 MMOL/L (98-107); CK-MB VALUE MASS 1.5 NG/ML (<3.6); CREATININE FOR GFR 0.78 MG/DL (0.55-1.30); GLOMERULAR FILTRATION RATE > 60.0 (>60); GLUCOSE, FASTING 56 MG/DL (60-100); POTASSIUM SERUM 4.3 MMOL/L (3.5-5.1); SODIUM LEVEL 139 MMOL/L (136-145); TOTAL PROTEIN 5.4 G/DL (5.7-8.2)
[2022-03-15 06:13] LABS: CPK CREATINE PHOSPHOKINASE 58 U/L (34-145); MB/CK RELATIVE INDEX 2.58 (< OR =4)
[2022-03-15] MEDS: PANTOPRAZOLE 40MG VIAL IV SCH (08:16)
[2022-03-15] MEDS: METHADONE 10MG TAB PO SCH (08:16)
[2022-03-15] MEDS: cefTRIAXone SOD 1 GM in D5W MINI-BAG PLUS 50 ML IV SCH (08:17)
[2022-03-15] MEDS: ASPIRIN 81MG ENTERIC TABLET PO SCH (08:17)
[2022-03-15] MEDS: predniSONE 20 MG TAB PO SCH (08:17)
[2022-03-15] MEDS: NICOTINE 7 MG/24 HR TRANSDERMAL TD SCH (08:18)
[2022-03-15] MEDS: AZITHROMYCIN INJ 500 MG, VIAL MATE ADAPTER 1 EACH in NS 250 ML IV SCH (09:08)
[2022-03-15 17:07] LABS: BODY FLUID CULTURE Not indicated. (.); LEGIONELLA ANTIGEN URINE Negative (Negative); ORGANISM ID Not indicated. (.); SPECIMEN SOURCE Urine (.); URINE STREP PNEUMONIAE ANTIGEN Negative (Negative)
[2022-03-15] MEDS: FLUoxetine 20MG CAP PO SCH (17:34)
[2022-03-15] MEDS: busPIRone 10 MG TAB PO SCH ×2 (17:34→20:39)
[2022-03-15] MEDS: PANTOPRAZOLE 40MG TAB (PROTONIX) PO SCH (20:39)
[2022-03-15] MEDS: IBUPROFEN 800 MG TAB PO PRN (20:41)
[2022-03-16] VITALS (9 sets, daily range): BP systolic 109–120; BP diastolic 65–82; O2SAT 96–98
[2022-03-16] MEDS: IPRATROPIUM 0.5MG/ALBUTEROL 2.5MG INH SOL UD 3ML (DUONEB) NEB SCH ×6 (03:11→23:07)
[2022-03-16 04:35] LABS: HEMATOCRIT 33.1 % (36.0-47.0); HEMOGLOBIN 10.9 g/dl (12.0-15.5); MEAN CORPUSCULAR HEMOGLOBIN 31.2 pg (27.0-33.0); MEAN CORPUSCULAR HGB CONC 32.9 g/dl (32.0-36.5); MEAN CORPUSCULAR VOLUME 94.8 fl (80.0-96.0); PLATELET COUNT, AUTOMATED 168 10^3/uL (150-450); RED BLOOD COUNT 3.49 10^6/uL (4.00-5.40); WHITE BLOOD COUNT 13.1 10^3/uL (4.0-10.0)
[2022-03-16 04:51] LABS: ATYPICAL LYMPH 1 % (0-5); EOSINOPHILS 2 % (0-3); LYMPHOCYTES 9 % (16-44); METAMYELOCYTES 3 % (0-0); MONOCYTES 1 % (0-5); NEUTROPHILS 84 % (28-66)
[2022-03-16 04:52] LABS: HYPERSEGMENTED POLYS 1+
[2022-03-16 04:53] LABS: PLATELET CLUMPS SMALL AMT; PLATELET ESTIMATE NORMAL (NORMAL); SMUDGE CELLS 1+
[2022-03-16 04:58] LABS: BLOOD UREA NITROGEN 25 MG/DL (9-23); CARBON DIOXIDE LEVEL 29 MMOL/L (20-31); CHLORIDE LEVEL 101 MMOL/L (98-107); CREATININE FOR GFR 0.71 MG/DL (0.55-1.30); GLOMERULAR FILTRATION RATE > 60.0 (>60); GLUCOSE, FASTING 75 MG/DL (60-100); SODIUM LEVEL 138 MMOL/L (136-145)
[2022-03-16] MEDS: NICOTINE 7 MG/24 HR TRANSDERMAL TD SCH (08:19)
[2022-03-16] MEDS: PANTOPRAZOLE 40MG TAB (PROTONIX) PO SCH ×2 (08:19→20:09)
[2022-03-16] MEDS: FLUoxetine 20MG CAP PO SCH (08:19)
[2022-03-16] MEDS: ASPIRIN 81MG ENTERIC TABLET PO SCH (08:20)
[2022-03-16] MEDS: busPIRone 10 MG TAB PO SCH ×3 (08:20→20:09)
[2022-03-16] MEDS: predniSONE 20 MG TAB PO SCH (08:20)
[2022-03-16] MEDS: METHADONE 10MG TAB PO SCH (08:20)
[2022-03-16] MEDS: cefTRIAXone SOD 1 GM in D5W MINI-BAG PLUS 50 ML IV SCH (08:39)
[2022-03-16] MEDS ORDERED: AZITHROMYCIN 250MG TABLET PO SCH (09:00)
[2022-03-16] MEDS: IBUPROFEN 800 MG TAB PO PRN ×2 (09:19→18:43)
[2022-03-16] MEDS: CEFDINIR 300 MG CAP (OMNICEF) PO SCH (20:09)
[2022-03-17] VITALS (9 sets, daily range): BP systolic 118–144; BP diastolic 77–90; O2SAT 94
[2022-03-17] MEDS ORDERED: ACETAMINOPHEN TAB 650MG DOSE (2X325MG) PO PRN (00:35)
[2022-03-17] MEDS: IPRATROPIUM 0.5MG/ALBUTEROL 2.5MG INH SOL UD 3ML (DUONEB) NEB SCH ×5 (03:06→20:06)
[2022-03-17 04:41] LABS: HEMATOCRIT 33.5 % (36.0-47.0); HEMOGLOBIN 10.9 g/dl (12.0-15.5); MEAN CORPUSCULAR HGB CONC 32.5 g/dl (32.0-36.5); MEAN CORPUSCULAR VOLUME 95.2 fl (80.0-96.0); PLATELET COUNT, AUTOMATED 203 10^3/uL (150-450); RED BLOOD COUNT 3.52 10^6/uL (4.00-5.40)
[2022-03-17 05:05] LABS: BLOOD UREA NITROGEN 19 MG/DL (9-23); CALCIUM LEVEL 7.7 MG/DL (8.5-10.1); CARBON DIOXIDE LEVEL 30 MMOL/L (20-31); CHLORIDE LEVEL 103 MMOL/L (98-107); CREATININE FOR GFR 0.59 MG/DL (0.55-1.30); GLOMERULAR FILTRATION RATE > 60.0 (>60); GLUCOSE, FASTING 96 MG/DL (60-100); POTASSIUM SERUM 4.1 MMOL/L (3.5-5.1); SODIUM LEVEL 138 MMOL/L (136-145)
[2022-03-17 05:40] LABS: ATYPICAL LYMPH 1 % (0-5); EOSINOPHILS 3 % (0-3); LYMPHOCYTES 18 % (16-44); METAMYELOCYTES 4 % (0-0); MONOCYTES 1 % (0-5); MYELOCYTES 2 % (0-0); NEUTROPHILS 70 % (28-66); PLATELET ESTIMATE NORMAL (NORMAL)
[2022-03-17] MEDS: PANTOPRAZOLE 40MG TAB (PROTONIX) PO SCH ×2 (09:45→20:32)
[2022-03-17] MEDS: ASPIRIN 81MG ENTERIC TABLET PO SCH (09:45)
[2022-03-17] MEDS: busPIRone 10 MG TAB PO SCH ×3 (09:46→20:32)
[2022-03-17] MEDS: CEFDINIR 300 MG CAP (OMNICEF) PO SCH ×2 (09:46→20:32)
[2022-03-17] MEDS: FLUoxetine 20MG CAP PO SCH (09:46)
[2022-03-17] MEDS: NICOTINE 7 MG/24 HR TRANSDERMAL TD SCH (09:47)
[2022-03-17] MEDS: METHADONE 10MG TAB PO SCH (09:48)
[2022-03-17] MEDS: IBUPROFEN 800 MG TAB PO PRN (13:04)
[2022-03-17] MEDS: NICOTINE 4 MG PO PRN (22:30)
[2022-03-18] VITALS (8 sets, daily range): BP systolic 85–148; BP diastolic 52–75
[2022-03-18] MEDS: IBUPROFEN 800 MG TAB PO PRN ×2 (01:54→20:30)
[2022-03-18] MEDS: NICOTINE 4 MG PO PRN ×7 (01:55→22:56)
[2022-03-18] MEDS: IPRATROPIUM 0.5MG/ALBUTEROL 2.5MG INH SOL UD 3ML (DUONEB) NEB SCH ×6 (04:00→20:30)
[2022-03-18 06:28] LABS: HEMATOCRIT 37.4 % (36.0-47.0); MEAN CORPUSCULAR HEMOGLOBIN 30.4 pg (27.0-33.0); MEAN CORPUSCULAR HGB CONC 32.1 g/dl (32.0-36.5); MEAN CORPUSCULAR VOLUME 94.7 fl (80.0-96.0); PLATELET COUNT, AUTOMATED 309 10^3/uL (150-450); RED BLOOD COUNT 3.95 10^6/uL (4.00-5.40)
[2022-03-18 06:54] LABS: BLOOD UREA NITROGEN 16 MG/DL (9-23); CALCIUM LEVEL 8.2 MG/DL (8.5-10.1); CARBON DIOXIDE LEVEL 26 MMOL/L (20-31); CHLORIDE LEVEL 99 MMOL/L (98-107); GLOMERULAR FILTRATION RATE > 60.0 (>60); GLUCOSE, FASTING 69 MG/DL (60-100); SODIUM LEVEL 136 MMOL/L (136-145)
[2022-03-18 07:53] LABS: EOSINOPHILS 5 % (0-3); LYMPHOCYTES 18 % (16-44); MONOCYTES 5 % (0-5); MYELOCYTES 1 % (0-0); NEUTROPHILS 69 % (28-66); PLATELET CLUMPS SMALL AMT; PLATELET ESTIMATE NORMAL (NORMAL)
[2022-03-18] MEDS: CEFDINIR 300 MG CAP (OMNICEF) PO SCH ×2 (08:53→20:30)
[2022-03-18] MEDS: ASPIRIN 81MG ENTERIC TABLET PO SCH (08:53)
[2022-03-18] MEDS: NICOTINE 7 MG/24 HR TRANSDERMAL TD SCH (08:53)
[2022-03-18] MEDS: FLUoxetine 20MG CAP PO SCH (08:54)
[2022-03-18] MEDS: busPIRone 10 MG TAB PO SCH ×3 (08:54→20:30)
[2022-03-18] MEDS: PANTOPRAZOLE 40MG TAB (PROTONIX) PO SCH ×2 (08:54→20:30)
[2022-03-18] MEDS: METHADONE 10MG TAB PO SCH (08:54)
[2022-03-18] MEDS ORDERED: SODIUM CHLORIDE 0.9% 1000ML IV ONE (22:00)
[2022-03-19 04:40] VITALS: BP 124/74
[2022-03-19] MEDS: IPRATROPIUM 0.5MG/ALBUTEROL 2.5MG INH SOL UD 3ML (DUONEB) NEB SCH ×5 (04:56→14:48)
[2022-03-19] MEDS: NICOTINE 4 MG PO PRN ×3 (05:13→10:48)
[2022-03-19 06:45] LABS: HEMATOCRIT 35.7 % (36.0-47.0); HEMOGLOBIN 11.4 g/dl (12.0-15.5); MEAN CORPUSCULAR HEMOGLOBIN 30.6 pg (27.0-33.0); MEAN CORPUSCULAR HGB CONC 31.9 g/dl (32.0-36.5); MEAN CORPUSCULAR VOLUME 95.7 fl (80.0-96.0); PLATELET COUNT, AUTOMATED 393 10^3/uL (150-450); RED BLOOD COUNT 3.73 10^6/uL (4.00-5.40); WHITE BLOOD COUNT 9.3 10^3/uL (4.0-10.0)
[2022-03-19 07:00] LABS: BLOOD UREA NITROGEN 16 MG/DL (9-23); CALCIUM LEVEL 8.3 MG/DL (8.5-10.1); CARBON DIOXIDE LEVEL 24 MMOL/L (20-31); CHLORIDE LEVEL 100 MMOL/L (98-107); CREATININE FOR GFR 0.69 MG/DL (0.55-1.30); GLOMERULAR FILTRATION RATE > 60.0 (>60); GLUCOSE, FASTING 73 MG/DL (60-100); POTASSIUM SERUM 4.6 MMOL/L (3.5-5.1); SODIUM LEVEL 137 MMOL/L (136-145)
[2022-03-19 07:29] LABS: ATYPICAL LYMPH 1 % (0-5); BASOPHILS 2 % (0-1); EOSINOPHILS 7 % (0-3); LYMPHOCYTES 22 % (16-44); METAMYELOCYTES 6 % (0-0); MONOCYTES 1 % (0-5); MYELOCYTES 1 % (0-0); NEUTROPHILS 58 % (28-66)
[2022-03-19 07:30] LABS: PLATELET CLUMPS SMALL AMT; PLATELET ESTIMATE NORMAL (NORMAL)
[2022-03-19 07:31] LABS: SMUDGE CELLS 1+
[2022-03-19] MEDS: CEFDINIR 300 MG CAP (OMNICEF) PO SCH (08:48)
[2022-03-19] MEDS: ASPIRIN 81MG ENTERIC TABLET PO SCH (08:48)
[2022-03-19] MEDS: busPIRone 10 MG TAB PO SCH (08:48)
[2022-03-19] MEDS: PANTOPRAZOLE 40MG TAB (PROTONIX) PO SCH (08:48)
[2022-03-19] MEDS: METHADONE 10MG TAB PO SCH (08:49)
[2022-03-19] MEDS: NICOTINE 7 MG/24 HR TRANSDERMAL TD SCH (08:49)
[2022-03-19] MEDS: FLUoxetine 20MG CAP PO SCH (08:49)
[2022-03-19] MEDS ORDERED: ASPI81TAEC PO ×2 (11:11→11:49)
[2022-03-19] MEDS ORDERED: CEFD300CAP PO ×2 (11:11→11:49)
[2022-03-19] MEDS ORDERED: VENTAER INH ×2 (11:11→11:49)
== END 2022-03-19 16:01 | disposition home or self-care (01) | DRG 139 ==
LOC: EDBD 10:09 → M ED 10:09 → M ED INP 11:42 → M ICU 13:58 → M MSPAV 03-17 17:15
PROVIDERS: ADMIT Internal Medicine Critical Care Medicine; ATTEND Internal Medicine Nephrology
DX: J18.9 Pneumonia, unspecified organism (principal); J96.01 Acute respiratory failure with hypoxia; I27.20 Pulmonary hypertension, unspecified; I50.810 Right heart failure, unspecified; I24.8 Other forms of acute ischemic heart disease; I36.0 Nonrheumatic tricuspid (valve) stenosis; F32.A Depression, unspecified; Z79.899 Other long term (current) drug therapy; Z88.8 Allergy status to other drugs, medicaments and biological substances; Z79.82 Long term (current) use of aspirin; F17.200 Nicotine dependence, unspecified, uncomplicated; Z91.018 Allergy to other foods

== ENCOUNTER 2022-11-28 14:47 | Observation (INO) | payer OTHER ==
[~2022-11-28] VITALS: Ht 167.6 cm; Wt 77.3 kg
[~2022-11-28 14:47] MED LIST changes: +ASPI81TAEC PO; +CEFD300CAP PO; -GABA-283 PO; +GABA-284 PO; -MIRT-62 PO; +MIRT-88 PO; +NYST-38 PO; -NYST50SS PO; +PREN1CHW PO; +VENTAER INH
[2022-11-28 15:25] LABS: HEMATOCRIT 34.5 % (36.0-47.0); MEAN CORPUSCULAR HEMOGLOBIN 29.5 pg (27.0-33.0); MEAN CORPUSCULAR HGB CONC 31.9 g/dl (32.0-36.5); MEAN CORPUSCULAR VOLUME 92.5 fl (80.0-96.0); PLATELET COUNT, AUTOMATED 277 10^3/uL (150-450); RED BLOOD COUNT 3.73 10^6/uL (4.00-5.40); WHITE BLOOD COUNT 11.1 10^3/uL (4.0-10.0)
[2022-11-28 15:30] LABS: VENOUS BASE EXCESS -1.9 (-2.0-2.0); VENOUS HCO3 22.9 MMOL/L (23.0-27.0); VENOUS O2 SATURATION 83.6 % (60.0-80.0); VENOUS PARTIAL PRESSURE CO2 39.5 mmHg (38.0-50.0); VENOUS PARTIAL PRESSURE O2 46.7 mmHg (30.0-50.0); VENOUS PH 7.382 UNITS (7.330-7.430); VENOUS STANDARD HCO3 22.6 MMOL/L; VENOUS TOTAL CO2 24.2 MMOL/L (24.0-28.0)
[2022-11-28] MEDS ORDERED: NS 1,000 ML IV ONE (15:50)
[2022-11-28 15:51] LABS: ATYPICAL LYMPH 4 % (0-5); BASOPHILS 1 % (0-1); LYMPHOCYTES 7 % (16-44); MONOCYTES 13 % (0-5); NEUTROPHILS 75 % (28-66); PLATELET ESTIMATE NORMAL (NORMAL)
[2022-11-28 15:58] LABS: ETHYL ALCOHOL (ETHANOL) < 0.003 % (0.000-0.010)
[2022-11-28 15:59] LABS: SALICYLATE LEVEL < 3.0 MG/DL (<30)
[2022-11-28 16:00] LABS: ACETAMINOPHEN LEVEL < 2.0 UG/ML (10.0-20.0); ALKALINE PHOSPHATASE 62 U/L (46-116); ALT/SGPT 35 U/L (7.0-40); AST/SGOT 99 U/L (<34); BILIRUBIN,DIRECT 0.1 MG/DL (<0.4); BILIRUBIN,TOTAL 0.3 MG/DL (0.3-1.2); BLOOD UREA NITROGEN 18 MG/DL (9-23); CALCIUM LEVEL 8.4 MG/DL (8.5-10.1); CARBON DIOXIDE LEVEL 25 MMOL/L (20-31); CHLORIDE LEVEL 104 MMOL/L (98-107); CREATININE FOR GFR 1.11 MG/DL (0.55-1.30); GLOMERULAR FILTRATION RATE 59.9 (>60); GLUCOSE, FASTING 109 MG/DL (60-100); SODIUM LEVEL 138 MMOL/L (136-145); TOTAL PROTEIN 5.9 G/DL (5.7-8.2)
[2022-11-28 16:02] LABS: THYROID STIMULATING HORMONE 3.252 uIU/ML (0.55-4.78)
[2022-11-28 16:09] LABS: AMPHETAMINES LEVEL URINE NEGATIVE (NEGATIVE); BARBITURATES URINE NEGATIVE (NEGATIVE); CANNABINOIDS URINE NEGATIVE (NEGATIVE); COCAINE METABOLITE URINE NEGATIVE (NEGATIVE); OPIATES URINE NEGATIVE (NEGATIVE); PHENCYCLIDINE URINE NEGATIVE (NEGATIVE)
[2022-11-28 16:13] LABS: BENZODIAZEPINES URINE POSITIVE (NEGATIVE); METHADONE URINE POSITIVE (NEGATIVE)
[2022-11-28] MEDS: PIPERACILLIN/TAZOBACTAM SOD 4.5 GM in D5W MINI-BAG PLUS 50 ML IV ONE ×2 (16:22→16:43)
[2022-11-28 16:25] LABS: CPK CREATINE PHOSPHOKINASE 2284 U/L (34-145)
[2022-11-28 17:26] LABS: PROCALCITONIN 1.22 ng/ml
[2022-11-28] MEDS ORDERED: MED REC IN PROGRESS XX SCH (19:05)
[2022-11-28] MEDS ORDERED: MED REC CURRENTLY UNOBTAINABLE XX SCH (19:05)
[2022-11-28] MEDS ORDERED: ASPI81CH33 PO (19:09)
[2022-11-28] MEDS ORDERED: ZONI50CA11 PO (19:11)
[2022-11-28] MEDS ORDERED: ECOT81TA5 PO (19:11)
[2022-11-28] MEDS ORDERED: FLUO40CA PO (19:13)
[2022-11-28] MEDS ORDERED: PREG100C2 PO (19:16)
[2022-11-28] MEDS ORDERED: ACET1TAB55 PO (19:16)
[2022-11-28] MEDS ORDERED: BUPR300T92 PO (19:16)
[2022-11-28] MEDS ORDERED: IBUP80TA PO (19:17)
[2022-11-28] MEDS ORDERED: NICO1DIS12 TP (19:20)
[2022-11-28] MEDS ORDERED: DOCU100C16 PO (19:20)
[2022-11-28] MEDS ORDERED: ALBU8.5H PO (19:20)
[2022-11-28] MEDS ORDERED: DEBL1TAB PO (19:20)
[2022-11-28] MEDS: NS 1,000 ML IV SCH (19:28)
[2022-11-28] MEDS ORDERED: HOME MED LIST COMPLETE! XX SCH (19:45)
[2022-11-28 19:52] VITALS: BP 110/61; TEMP 97.7; O2SAT 93
[2022-11-28] MEDS ORDERED: ALBUTEROL 90 MCG/ACT 8GM HFA INHALER INH PRN (20:35)
[2022-11-28] MEDS ORDERED: NICOTINE 21MG/24HR 1 EA TRANSDERMAL TOP PRN (20:35)
[2022-11-28] MEDS ORDERED: busPIRone 10 MG TAB PO SCH (21:00)
[2022-11-28] MEDS ORDERED: DOCUSATE SODIUM 100MG CAPSULE PO SCH (21:00)
[2022-11-28] MEDS ORDERED: PREGABALIN 100 MG CAP (LYRICA) PO SCH (21:00)
[2022-11-28] MEDS: PIPERACILLIN/TAZOBACTAM SOD 4.5 GM in D5W MINI-BAG PLUS 50 ML IV SCH (23:08)
[2022-11-28 23:23] VITALS: O2SAT 95
[2022-11-29] MEDS: NS 1,000 ML IV SCH (01:25)
[2022-11-29] MEDS ORDERED: ACETAMINOPHEN TAB 650MG DOSE (2X325MG) PO PRN (02:55)
[2022-11-29] MEDS: PIPERACILLIN/TAZOBACTAM SOD 4.5 GM in D5W MINI-BAG PLUS 50 ML IV SCH (04:50)
[2022-11-29 06:00] VITALS: BP 109/65; TEMP 97.9; O2SAT 94
[2022-11-29 06:10] LABS: HEMOGLOBIN 9.3 g/dl (12.0-15.5); MEAN CORPUSCULAR HEMOGLOBIN 29.5 pg (27.0-33.0); MEAN CORPUSCULAR HGB CONC 32.1 g/dl (32.0-36.5); MEAN CORPUSCULAR VOLUME 92.1 fl (80.0-96.0); PLATELET COUNT, AUTOMATED 236 10^3/uL (150-450); RED BLOOD COUNT 3.15 10^6/uL (4.00-5.40); WHITE BLOOD COUNT 8.9 10^3/uL (4.0-10.0)
[2022-11-29 06:39] LABS: BLOOD UREA NITROGEN 12 MG/DL (9-23); CALCIUM LEVEL 7.5 MG/DL (8.5-10.1); CARBON DIOXIDE LEVEL 23 MMOL/L (20-31); CHLORIDE LEVEL 105 MMOL/L (98-107); CREATININE FOR GFR 0.88 MG/DL (0.55-1.30); GLOMERULAR FILTRATION RATE > 60.0 (>60); GLUCOSE, FASTING 113 MG/DL (60-100); POTASSIUM SERUM 3.8 MMOL/L (3.5-5.1); SODIUM LEVEL 138 MMOL/L (136-145)
[2022-11-29 06:44] LABS: PROCALCITONIN 0.65 ng/ml
[2022-11-29 07:11] LABS: ATYPICAL LYMPH 3 % (0-5); EOSINOPHILS 2 % (0-3); LYMPHOCYTES 19 % (16-44); MONOCYTES 6 % (0-5); NEUTROPHILS 68 % (28-66); PLATELET ESTIMATE NORMAL (NORMAL)
[2022-11-29 08:01] LABS: HCG, SERUM QUALITATIVE NEGATIVE (NEGATIVE)
[2022-11-29] MEDS ORDERED: HOME MED LIST COMPLETE! XX SCH (08:30)
[2022-11-29] MEDS ORDERED: MOXI1TAB PO (08:31)
[2022-11-29] MEDS ORDERED: buPROPion **XL** TABLET 150MG (WELLBUTRIN XL) PO SCH (09:00)
[2022-11-29] MEDS ORDERED: FLUoxetine 20MG CAP PO SCH (09:00)
[2022-11-29] MEDS ORDERED: ZONISAMIDE 50 MG CAP (ZONEGRAN) PO SCH (09:00)
[2022-11-29] MEDS ORDERED: ASPIRIN 81MG ENTERIC TABLET PO SCH (09:00)
[2022-11-29] MEDS ORDERED: ENOXAPARIN 40MG/0.4ML SYRINGE (J1650 PER 10MG) SC SCH (09:00)
== END 2022-11-29 09:23 | disposition home or self-care (01) ==
LOC: M ED 14:47 → EDBD 14:47 → M ED INP 17:36 → M MSPAV 19:58
PROVIDERS: ADMIT Internal Medicine; ATTEND Internal Medicine
DX: J69.0 Pneumonitis due to inhalation of food and vomit (principal); T40.3X1A Poisoning by methadone, accidental (unintentional), initial encounter; Z79.891 Long term (current) use of opiate analgesic; G92.8 Other toxic encephalopathy; E87.29 Other acidosis; F32.A Depression, unspecified; Z79.82 Long term (current) use of aspirin; Z79.899 Other long term (current) drug therapy; Z91.018 Allergy to other foods
CPT/HCPCS: 36415; 51701; 71045; 80048; 80076; 80143; 80307; 82077; 82550; 82803; 83605; 83880; 84145; 84443; 84703; 85025; 87040; 87449; 87486; 87581; 87633; 87798; 87899; 93005; 93041; 94760; 96365; 96366; 96375; 99285; J2543

== ENCOUNTER → 2023-02-28 | Outpatient (REF) | payer OTHER ==
[~2023-02-28] MED LIST changes: +ACET1TAB55 PO; +ALBU8.5H PO; +ASPI81CH33 PO; +BUPR300T92 PO; +DEBL1TAB PO; +DOCU100C16 PO; +ECOT81TA5 PO; +MOXI1TAB PO; +NICO1DIS12 TP; +PREG100C2 PO; +ZONI50CA11 PO
[2023-02-28 17:22] LABS: HEMATOCRIT 34.5 % (36.0-47.0); HEMOGLOBIN 11.2 g/dl (12.0-15.5); MEAN CORPUSCULAR HEMOGLOBIN 29.2 pg (27.0-33.0); MEAN CORPUSCULAR HGB CONC 32.5 g/dl (32.0-36.5); MEAN CORPUSCULAR VOLUME 89.8 fl (80.0-96.0); PLATELET COUNT, AUTOMATED 304 10^3/uL (150-450); RED BLOOD COUNT 3.84 10^6/uL (4.00-5.40); WHITE BLOOD COUNT 5.7 10^3/uL (4.0-10.0)
[2023-02-28 18:20] LABS: HIV 1&2 SCREEN NEGATIVE (NEGATIVE)
[2023-02-28 18:35] LABS: HEPATITIS C VIRUS ABY INDEX > 11.00 INDEX (<0.8)
== END ==
LOC: M LAB REF 16:34
PROVIDERS: ATTEND Obstetrics & Gynecology
DX: Z32.01 Encounter for pregnancy test, result positive (principal); O36.80X0 Pregnancy with inconclusive fetal viability, not applicable or unspecified

== ENCOUNTER 2023-04-17 11:26 | Inpatient (IN) | payer OTHER ==
[~2023-04-17] VITALS: Ht 152.4 cm; Wt 66.0 kg
[2023-04-17] MEDS ORDERED: PRED20TA PO (11:54)
[2023-04-17] MEDS ORDERED: AMOX875T2 PO (11:54)
[2023-04-17] MEDS ORDERED: ONDA4TAB6 PO (11:54)
[2023-04-17] MEDS ORDERED: FERR325T19 PO (11:54)
[2023-04-17 14:23] LABS: ALBUMIN 2.1 G/DL (3.2-5.2); ALKALINE PHOSPHATASE 81 U/L (46-116); ALT/SGPT 13 U/L (7.0-40); AST/SGOT 20 U/L (<34); BILIRUBIN,DIRECT < 0.1 MG/DL (<0.4); BILIRUBIN,TOTAL 0.2 MG/DL (0.3-1.2); BLOOD UREA NITROGEN 13 MG/DL (9-23); CALCIUM LEVEL 8.4 MG/DL (8.5-10.1); CARBON DIOXIDE LEVEL 24 MMOL/L (20-31); CHLORIDE LEVEL 108 MMOL/L (98-107); CREATININE FOR GFR 0.48 MG/DL (0.55-1.30); GLOMERULAR FILTRATION RATE > 60.0 (>60); GLUCOSE, FASTING 108 MG/DL (60-100); POTASSIUM SERUM 3.4 MMOL/L (3.5-5.1); SODIUM LEVEL 137 MMOL/L (136-145); TOTAL PROTEIN 5.3 G/DL (5.7-8.2)
[2023-04-17 14:25] LABS: THYROID STIMULATING HORMONE 0.625 uIU/ML (0.55-4.78); THYROXINE (T4) 18.2 UG/DL (4.5-10.9)
[2023-04-17 14:30] LABS: PROCALCITONIN 0.08 ng/ml
[2023-04-17] MEDS ORDERED: cefTRIAXone SOD 1 GM in D5W MINI-BAG PLUS 50 ML IV ONE (14:35)
[2023-04-17] MEDS ORDERED: AZITHROMYCIN INJ 500 MG, VIAL MATE ADAPTER 1 EACH in D5W 250 ML IV ONE (14:35)
[2023-04-17 15:02] LABS: BASO % 0.1 % (0.0-1.0); HEMATOCRIT 29.5 % (36.0-47.0); LYMPH # 0.7 10^3/uL (1.5-5.0); MEAN CORPUSCULAR HEMOGLOBIN 29.9 pg (27.0-33.0); MEAN CORPUSCULAR HGB CONC 33.9 g/dl (32.0-36.5); MEAN CORPUSCULAR VOLUME 88.3 fl (80.0-96.0); MONO # 0.2 10^3/uL (0.0-0.8); MONO % 1.7 % (2.0-8.0); NEUTROPHILS # 12.3 10^3/uL (1.5-8.5); NEUTROPHILS % 92.7 % (36.0-66.0); PLATELET COUNT, AUTOMATED 285 10^3/uL (150-450); RED BLOOD COUNT 3.34 10^6/uL (4.00-5.40); WHITE BLOOD COUNT 13.3 10^3/uL (4.0-10.0)
[2023-04-17] MEDS ORDERED: MED REC IN PROGRESS XX SCH (15:50)
[2023-04-17] MEDS ORDERED: FUROSEMIDE 40MG/4ML VIAL IV ONE (16:10)
[2023-04-17] MEDS ORDERED: FLUO40CA PO (16:24)
[2023-04-17] MEDS ORDERED: BUPR1FIL35 PO (16:24)
[2023-04-17] MEDS ORDERED: BUPR1FIL PO (16:24)
[2023-04-17] MEDS ORDERED: PREN27TA3 PO (16:24)
[2023-04-17] MEDS ORDERED: HOME MED LIST COMPLETE! XX SCH (16:25)
[2023-04-17] MEDS: ALBUTEROL 90 MCG/ACT 8GM HFA INHALER INH SCH ×3 (17:06→23:54)
[2023-04-17] MEDS: dexAMETHasone 20MG/5ML VIAL IV SCH (18:36)
[2023-04-17 20:18] VITALS: BP 100/55; TEMP 97.8; O2SAT 98
[2023-04-17] MEDS: SYMBICORT 80/4.5MCG INHALER 6GM INH SCH (20:36)
[2023-04-17 20:37] VITALS: O2SAT 97
[2023-04-17] MEDS: PREGABALIN 100 MG CAP (LYRICA) PO SCH (21:51)
[2023-04-17] MEDS: busPIRone 10 MG TAB PO SCH (21:51)
[2023-04-17] MEDS: CALCIUM CARBONATE 500 MG CHEW U/D PO SCH (21:51)
[2023-04-17 23:20] LABS: AMPHETAMINES LEVEL URINE NEGATIVE (NEGATIVE); BARBITURATES URINE NEGATIVE (NEGATIVE); BENZODIAZEPINES URINE NEGATIVE (NEGATIVE); COCAINE METABOLITE URINE NEGATIVE (NEGATIVE); METHADONE URINE NEGATIVE (NEGATIVE)
[2023-04-17 23:21] LABS: OPIATES URINE NEGATIVE (NEGATIVE); PHENCYCLIDINE URINE NEGATIVE (NEGATIVE)
[2023-04-17 23:33] LABS: CANNABINOIDS URINE POSITIVE (NEGATIVE)
[2023-04-18] VITALS (15 sets, daily range): BP systolic 86–107; BP diastolic 47–60; TEMP 96.8–97.3; O2SAT 88–99
[2023-04-18] MEDS: ALBUTEROL 90 MCG/ACT 8GM HFA INHALER INH SCH ×7 (04:00→23:12)
[2023-04-18 05:50] LABS: HEMATOCRIT 28.9 % (36.0-47.0); HEMOGLOBIN 9.7 g/dl (12.0-15.5); LYMPH # 1.9 10^3/uL (1.5-5.0); LYMPH % 18.1 % (24.0-44.0); MEAN CORPUSCULAR HEMOGLOBIN 29.8 pg (27.0-33.0); MEAN CORPUSCULAR HGB CONC 33.6 g/dl (32.0-36.5); MEAN CORPUSCULAR VOLUME 88.9 fl (80.0-96.0); MONO # 0.5 10^3/uL (0.0-0.8); MONO % 4.7 % (2.0-8.0); NEUTROPHILS # 8.2 10^3/uL (1.5-8.5); NEUTROPHILS % 76.8 % (36.0-66.0); PLATELET COUNT, AUTOMATED 307 10^3/uL (150-450); RED BLOOD COUNT 3.25 10^6/uL (4.00-5.40); WHITE BLOOD COUNT 10.7 10^3/uL (4.0-10.0)
[2023-04-18 06:14] LABS: BLOOD UREA NITROGEN 12 MG/DL (9-23); CALCIUM LEVEL 8.3 MG/DL (8.5-10.1); CARBON DIOXIDE LEVEL 28 MMOL/L (20-31); CHLORIDE LEVEL 104 MMOL/L (98-107); CREATININE FOR GFR 0.61 MG/DL (0.55-1.30); GLOMERULAR FILTRATION RATE > 60.0 (>60); GLUCOSE, FASTING 127 MG/DL (60-100); POTASSIUM SERUM 2.9 MMOL/L (3.5-5.1); SODIUM LEVEL 139 MMOL/L (136-145)
[2023-04-18] MEDS ORDERED: POTASSIUM CHLORIDE 10% LIQ 20MEQ/15ML UDC PO ONE (06:20)
[2023-04-18] MEDS: KCL 10MEQ/100ML SWI (KRUN) 10 MEQ in IV 1 EA IV SCH ×4 (06:47→10:00)
[2023-04-18] MEDS: dexAMETHasone 20MG/5ML VIAL IV SCH ×2 (06:47→18:02)
[2023-04-18 07:45] LABS: MAGNESIUM LEVEL 1.9 MG/DL (1.8-2.4)
[2023-04-18] MEDS: SYMBICORT 80/4.5MCG INHALER 6GM INH SCH ×2 (07:48→19:21)
[2023-04-18] MEDS: BUPRENORPHINE/NALOXONE 8-2MG SUBLINGUAL TABLET(SUBOXONE) SL SCH (08:41)
[2023-04-18] MEDS: ENOXAPARIN 40MG/0.4ML SYRINGE (J1650 PER 10MG) SC SCH (08:41)
[2023-04-18] MEDS: CALCIUM CARBONATE 500 MG CHEW U/D PO SCH ×3 (08:41→18:02)
[2023-04-18] MEDS: AZITHROMYCIN 250MG TABLET PO SCH (08:42)
[2023-04-18] MEDS: FLUoxetine 20MG CAP PO SCH (08:42)
[2023-04-18] MEDS: ASPIRIN 81MG ENTERIC TABLET PO SCH (08:42)
[2023-04-18] MEDS: BUPRENORPHINE/NALOXONE 2-0.5MG SUBLINGUAL TABLET(SUBOXONE) SL SCH (08:42)
[2023-04-18] MEDS: PREGABALIN 100 MG CAP (LYRICA) PO SCH ×3 (08:43→21:05)
[2023-04-18] MEDS: FERROUS SULFATE 325MG TAB PO SCH (08:43)
[2023-04-18] MEDS: POTASSIUM CHLORIDE 10MEQ SR TABLET PO SCH (08:43)
[2023-04-18] MEDS: busPIRone 10 MG TAB PO SCH ×3 (08:43→21:05)
[2023-04-18] MEDS ORDERED: ONDANSETRON 4MG ORAL DISINTEGRATING TAB SL PRN (14:30)
[2023-04-18] MEDS: cefTRIAXone SOD 1 GM in D5W MINI-BAG PLUS 50 ML IV SCH (15:55)
[2023-04-19] VITALS (33 sets, daily range): BP systolic 89–96; BP diastolic 50–55; TEMP 97–97.5; O2SAT 88–98
[2023-04-19] MEDS: ALBUTEROL 90 MCG/ACT 8GM HFA INHALER INH SCH ×6 (03:33→23:28)
[2023-04-19] MEDS: dexAMETHasone 20MG/5ML VIAL IV SCH ×2 (06:00→18:39)
[2023-04-19 06:26] LABS: EOS % 0.2 % (0.0-3.0); HEMATOCRIT 28.1 % (36.0-47.0); HEMOGLOBIN 9.4 g/dl (12.0-15.5); LYMPH % 22.4 % (24.0-44.0); MEAN CORPUSCULAR HEMOGLOBIN 30.1 pg (27.0-33.0); MEAN CORPUSCULAR HGB CONC 33.5 g/dl (32.0-36.5); MEAN CORPUSCULAR VOLUME 90.1 fl (80.0-96.0); MONO # 0.5 10^3/uL (0.0-0.8); MONO % 5.2 % (2.0-8.0); NEUTROPHILS # 6.4 10^3/uL (1.5-8.5); NEUTROPHILS % 71.5 % (36.0-66.0); PLATELET COUNT, AUTOMATED 311 10^3/uL (150-450); RED BLOOD COUNT 3.12 10^6/uL (4.00-5.40); WHITE BLOOD COUNT 8.9 10^3/uL (4.0-10.0)
[2023-04-19 06:50] LABS: BLOOD UREA NITROGEN 16 MG/DL (9-23); CALCIUM LEVEL 8.4 MG/DL (8.5-10.1); CARBON DIOXIDE LEVEL 28 MMOL/L (20-31); CHLORIDE LEVEL 105 MMOL/L (98-107); CREATININE FOR GFR 0.51 MG/DL (0.55-1.30); GLOMERULAR FILTRATION RATE > 60.0 (>60); GLUCOSE, FASTING 90 MG/DL (60-100); POTASSIUM SERUM 3.7 MMOL/L (3.5-5.1); SODIUM LEVEL 139 MMOL/L (136-145)
[2023-04-19] MEDS: SYMBICORT 80/4.5MCG INHALER 6GM INH SCH ×2 (07:24→20:41)
[2023-04-19] MEDS: ENOXAPARIN 40MG/0.4ML SYRINGE (J1650 PER 10MG) SC SCH (10:05)
[2023-04-19] MEDS: BUPRENORPHINE/NALOXONE 8-2MG SUBLINGUAL TABLET(SUBOXONE) SL SCH (10:06)
[2023-04-19] MEDS: BUPRENORPHINE/NALOXONE 2-0.5MG SUBLINGUAL TABLET(SUBOXONE) SL SCH (10:06)
[2023-04-19] MEDS: CALCIUM CARBONATE 500 MG CHEW U/D PO SCH ×3 (10:06→18:39)
[2023-04-19] MEDS: AZITHROMYCIN 250MG TABLET PO SCH (10:07)
[2023-04-19] MEDS: ASPIRIN 81MG ENTERIC TABLET PO SCH (10:07)
[2023-04-19] MEDS: POTASSIUM CHLORIDE 10MEQ SR TABLET PO SCH (10:07)
[2023-04-19] MEDS: FERROUS SULFATE 325MG TAB PO SCH (10:08)
[2023-04-19] MEDS: PREGABALIN 100 MG CAP (LYRICA) PO SCH ×3 (10:08→20:22)
[2023-04-19] MEDS: busPIRone 10 MG TAB PO SCH ×3 (10:08→20:21)
[2023-04-19] MEDS: FLUoxetine 20MG CAP PO SCH (10:11)
[2023-04-19] MEDS: cefTRIAXone SOD 1 GM in D5W MINI-BAG PLUS 50 ML IV SCH (14:27)
[2023-04-20] VITALS (17 sets, daily range): BP systolic 88–97; BP diastolic 51–57; TEMP 97–98; O2SAT 92–98
[2023-04-20] MEDS: ALBUTEROL 90 MCG/ACT 8GM HFA INHALER INH SCH ×3 (03:04→11:41)
[2023-04-20] MEDS: dexAMETHasone 20MG/5ML VIAL IV SCH (05:14)
[2023-04-20 05:48] LABS: BASO % 0.2 % (0.0-1.0); EOS % 0.3 % (0.0-3.0); HEMATOCRIT 27.9 % (36.0-47.0); HEMOGLOBIN 9.3 g/dl (12.0-15.5); LYMPH # 2.5 10^3/uL (1.5-5.0); LYMPH % 25.2 % (24.0-44.0); MEAN CORPUSCULAR HEMOGLOBIN 30.1 pg (27.0-33.0); MEAN CORPUSCULAR HGB CONC 33.3 g/dl (32.0-36.5); MEAN CORPUSCULAR VOLUME 90.3 fl (80.0-96.0); MONO # 0.6 10^3/uL (0.0-0.8); NEUTROPHILS # 6.6 10^3/uL (1.5-8.5); NEUTROPHILS % 66.4 % (36.0-66.0); PLATELET COUNT, AUTOMATED 318 10^3/uL (150-450); RED BLOOD COUNT 3.09 10^6/uL (4.00-5.40); WHITE BLOOD COUNT 9.9 10^3/uL (4.0-10.0)
[2023-04-20 06:19] LABS: BLOOD UREA NITROGEN 15 MG/DL (9-23); CALCIUM LEVEL 8.2 MG/DL (8.5-10.1); CARBON DIOXIDE LEVEL 26 MMOL/L (20-31); CHLORIDE LEVEL 104 MMOL/L (98-107); CREATININE FOR GFR 0.47 MG/DL (0.55-1.30); GLOMERULAR FILTRATION RATE > 60.0 (>60); GLUCOSE, FASTING 88 MG/DL (60-100); POTASSIUM SERUM 4.4 MMOL/L (3.5-5.1); SODIUM LEVEL 136 MMOL/L (136-145)
[2023-04-20] MEDS: SYMBICORT 80/4.5MCG INHALER 6GM INH SCH (07:38)
[2023-04-20] MEDS: ENOXAPARIN 40MG/0.4ML SYRINGE (J1650 PER 10MG) SC SCH (10:28)
[2023-04-20] MEDS: CALCIUM CARBONATE 500 MG CHEW U/D PO SCH ×2 (10:30→12:30)
[2023-04-20] MEDS: BUPRENORPHINE/NALOXONE 2-0.5MG SUBLINGUAL TABLET(SUBOXONE) SL SCH (10:30)
[2023-04-20] MEDS: AZITHROMYCIN 250MG TABLET PO SCH (10:30)
[2023-04-20] MEDS: ASPIRIN 81MG ENTERIC TABLET PO SCH (10:30)
[2023-04-20] MEDS: PREGABALIN 100 MG CAP (LYRICA) PO SCH (10:30)
[2023-04-20] MEDS: BUPRENORPHINE/NALOXONE 8-2MG SUBLINGUAL TABLET(SUBOXONE) SL SCH (10:30)
[2023-04-20] MEDS: FERROUS SULFATE 325MG TAB PO SCH (10:30)
[2023-04-20] MEDS: FLUoxetine 20MG CAP PO SCH (10:31)
[2023-04-20] MEDS: busPIRone 10 MG TAB PO SCH (10:36)
[2023-04-20] MEDS ORDERED: AZIT-12 PO (12:37)
[2023-04-20] MEDS ORDERED: PRED10TA2 PO (12:37)
[2023-04-20] MEDS ORDERED: SYMB80INH INH (12:37)
[2023-04-20] MEDS ORDERED: CEFU50TA PO (12:37)
[2023-04-20] MEDS ORDERED: INFLUENZA QUADRIVALENT PF VACCINE 0.5ML SYRINGE IM.IMMUN ONE (13:55)
== END 2023-04-20 14:49 | disposition home or self-care (01) | DRG 566 ==
LOC: EDBD 11:26 → M ED 11:26 → M ED INP 16:06 → M PCU 20:18
PROVIDERS: ADMIT Internal Medicine Nephrology; ATTEND Internal Medicine Nephrology
DX: O98.512 Other viral diseases complicating pregnancy, second trimester (principal); J12.82 Pneumonia due to coronavirus disease 2019; J96.01 Acute respiratory failure with hypoxia; I27.20 Pulmonary hypertension, unspecified; O99.282 Endocrine, nutritional and metabolic diseases complicating pregnancy, second trimester; U07.1 COVID-19; J21.0 Acute bronchiolitis due to respiratory syncytial virus; E87.6 Hypokalemia; F17.200 Nicotine dependence, unspecified, uncomplicated; F32.A Depression, unspecified; F41.9 Anxiety disorder, unspecified; O99.332 Smoking (tobacco) complicating pregnancy, second trimester; O99.342 Other mental disorders complicating pregnancy, second trimester; Z3A.20 20 weeks gestation of pregnancy; O99.512 Diseases of the respiratory system complicating pregnancy, second trimester; Z79.899 Other long term (current) drug therapy; Z79.82 Long term (current) use of aspirin; Z91.018 Allergy to other foods; O09.522 Supervision of elderly multigravida, second trimester

== ENCOUNTER → 2023-05-31 | Outpatient (REF) | payer OTHER ==
[~2023-05-31] MED LIST changes: +AMOX875T2 PO; +AZIT-12 PO; +BUPR1FIL PO; +BUPR1FIL35 PO; +CEFU50TA PO; +FERR325T19 PO; +ONDA4TAB6 PO; +PRED10TA2 PO; +PRED20TA PO; +PREN27TA3 PO; +SYMB80INH INH
== END ==
LOC: M LAB REF 16:23
PROVIDERS: ATTEND Obstetrics & Gynecology
DX: Z34.83 Encounter for supervision of other normal pregnancy, third trimester (principal); R30.0 Dysuria; B95.7 Other staphylococcus as the cause of diseases classified elsewhere

== ENCOUNTER 2023-06-26 10:31 | Observation (INO) | payer OTHER ==
[~2023-06-26] VITALS: Ht 157.5 cm; Wt 68.1 kg
[2023-06-26] VITALS (7 sets, daily range): BP systolic 88–109; BP diastolic 44–56
[2023-06-26] MEDS ORDERED: cloNIDine 0.1MG TABLET PO PRN (10:50)
[2023-06-26] MEDS: LOPERAMIDE 2 MG CAPLET PO ONE (10:50)
[2023-06-26] MEDS ORDERED: SODIUM CHLORIDE NASAL 0.65% SPRAY BTL (OCEAN) PRN (11:00)
[2023-06-26] MEDS: LORazepam 1 MG TAB PO PRN (11:22)
[2023-06-26] MEDS: ACETAMINOPHEN 500 MG TAB PO PRN (11:22)
[2023-06-26 11:54] LABS: HEMOGLOBIN 8.8 g/dl (12.0-15.5); MEAN CORPUSCULAR HEMOGLOBIN 30.9 pg (27.0-33.0); MEAN CORPUSCULAR HGB CONC 33.8 g/dl (32.0-36.5); MEAN CORPUSCULAR VOLUME 91.2 fl (80.0-96.0); PLATELET COUNT, AUTOMATED 257 10^3/uL (150-450); RED BLOOD COUNT 2.85 10^6/uL (4.00-5.40)
[2023-06-26 12:22] LABS: ALKALINE PHOSPHATASE 111 U/L (46-116); ALT/SGPT 9 U/L (7.0-40); AST/SGOT 14 U/L (<34); BILIRUBIN,TOTAL 0.2 MG/DL (0.3-1.2); BLOOD UREA NITROGEN 10 MG/DL (9-23); CALCIUM LEVEL 7.8 MG/DL (8.5-10.1); CARBON DIOXIDE LEVEL 26 MMOL/L (20-31); CHLORIDE LEVEL 103 MMOL/L (98-107); CREATININE FOR GFR 0.56 MG/DL (0.55-1.30); GLOMERULAR FILTRATION RATE > 60.0 (>60); GLUCOSE, FASTING 117 MG/DL (60-100); POTASSIUM SERUM 3.2 MMOL/L (3.5-5.1); SODIUM LEVEL 138 MMOL/L (136-145); TOTAL PROTEIN 4.8 G/DL (5.7-8.2)
[2023-06-26 13:06] LABS: TOTAL PROTEIN,RANDOM URINE 84.6 MG/DL (0.0-14.0)
[2023-06-26 13:08] LABS: AMPHETAMINES URINE REFLEX NEGATIVE (NEGATIVE); BARBITURATES URINE REFLEX NEGATIVE (NEGATIVE); COCAINE METABOLITE URINE REFLE NEGATIVE (NEGATIVE); METHADONE URINE REFLEX NEGATIVE (NEGATIVE); PHENCYCLIDINE URINE REFLEX NEGATIVE (NEGATIVE)
[2023-06-26 13:15] LABS: BENZODIAZEPINES URINE REFLEX PENDING CONFIRMATION (NEGATIVE); CANNABINOIDS URINE REFLEX PENDING CONFIRMATION (NEGATIVE); OPIATES URINE REFLEX PENDING CONFIRMATION (NEGATIVE)
[2023-06-26 13:23] LABS: CREATININE,RANDOM URINE 408.7 MG/DL
[2023-06-26 19:08] LABS: AMORPHOUS SEDIMENT MODERATE (NEGATIVE); APPEARANCE, URINE TURBID (CLEAR); BACTERIA, URINE AUTO NEGATIVE (NEGATIVE); BILIRUBIN, URINE AUTO 1+ (NEGATIVE); BLOOD, URINE BLOOD NEGATIVE (NEGATIVE); COLOR, URINE AMBER (YELLOW); GLUCOSE, URINE (UA) AUTO NEGATIVE (NEGATIVE); KETONE, URINE AUTO TRACE mg/dL (NEGATIVE); LEUKOCYTE ESTERASE, URINE AUTO TRACE (NEGATIVE); MUCUS, URINE LARGE (NEGATIVE); NITRITE, URINE AUTO NEGATIVE (NEGATIVE); PROTEIN, URINE AUTO 2+ mg/dL (NEGATIVE); RBC, URINE AUTO 0 /HPF (0-3); SPECIFIC GRAVITY URINE AUTO 1.031 (1.002-1.035); SQUAMOUS EPITHELIAL CELL UR AU 22 /HPF (0-6); WBC, URINE AUTO 0 /HPF (0-3)
[2023-06-27 05:37] VITALS: BP 103/60
[2023-06-27] MEDS: ONDANSETRON 4MG 2ML VIAL IV PRN (05:42)
[2023-06-27] MEDS: BUPRENORPHINE/NALOXONE 8-2MG SUBLINGUAL TABLET(SUBOXONE) SL SCH (12:25)
[2023-06-30 04:07] LABS: Benzodiazepines Negative (Cutoff=300); Cannabinoid Positive (.); Carboxy THC Conf, MS, UR 120 ng/mL (Cutoff=10); Opiates Negative (Cutoff=200)
== END 2023-06-27 13:50 ==
LOC: M LDO 10:31 → M LDI 16:52
PROVIDERS: ADMIT Advanced Practice Midwife; ATTEND Advanced Practice Midwife
DX: O99.323 Drug use complicating pregnancy, third trimester (principal); O99.333 Smoking (tobacco) complicating pregnancy, third trimester; O10.013 Pre-existing essential hypertension complicating pregnancy, third trimester; O98.313 Other infections with a predominantly sexual mode of transmission complicating pregnancy, third trimester; O99.343 Other mental disorders complicating pregnancy, third trimester; O99.613 Diseases of the digestive system complicating pregnancy, third trimester; Z79.891 Long term (current) use of opiate analgesic; Z79.82 Long term (current) use of aspirin; Z79.899 Other long term (current) drug therapy; Z79.2 Long term (current) use of antibiotics; Z3A.30 30 weeks gestation of pregnancy
CPT/HCPCS: 59025; 80053; 80307; 81001; 82570; 84156; 85027; 96374; G0463; G0480; J2405

== ENCOUNTER → 2023-07-03 | Outpatient (CLI) | payer OTHER ==
[2023-07-03 12:21] LABS: BASO % 0.3 % (0.0-1.0); EOS # 0.2 10^3/uL (0.0-0.5); EOS % 1.4 % (0.0-3.0); HEMATOCRIT 29.7 % (36.0-47.0); LYMPH # 1.9 10^3/uL (1.5-5.0); LYMPH % 18.1 % (24.0-44.0); MEAN CORPUSCULAR HEMOGLOBIN 30.8 pg (27.0-33.0); MEAN CORPUSCULAR HGB CONC 33.7 g/dl (32.0-36.5); MEAN CORPUSCULAR VOLUME 91.4 fl (80.0-96.0); MONO # 0.5 10^3/uL (0.0-0.8); MONO % 5.1 % (2.0-8.0); NEUTROPHILS # 7.9 10^3/uL (1.5-8.5); NEUTROPHILS % 74.7 % (36.0-66.0); PLATELET COUNT, AUTOMATED 338 10^3/uL (150-450); RED BLOOD COUNT 3.25 10^6/uL (4.00-5.40); WHITE BLOOD COUNT 10.6 10^3/uL (4.0-10.0)
[2023-07-03 12:34] LABS: APPEARANCE, URINE CLOUDY (CLEAR); BACTERIA, URINE AUTO 1+ (NEGATIVE); BILIRUBIN, URINE AUTO NEGATIVE (NEGATIVE); BLOOD, URINE BLOOD NEGATIVE (NEGATIVE); COLOR, URINE AMBER (YELLOW); GLUCOSE, URINE (UA) AUTO NEGATIVE (NEGATIVE); KETONE, URINE AUTO NEGATIVE (NEGATIVE); LEUKOCYTE ESTERASE, URINE AUTO 1+ (NEGATIVE); MUCUS, URINE SMALL (NEGATIVE); NITRITE, URINE AUTO NEGATIVE (NEGATIVE); PROTEIN, URINE AUTO NEGATIVE (NEGATIVE); RBC, URINE AUTO 13 /HPF (0-3); SPECIFIC GRAVITY URINE AUTO 1.018 (1.002-1.035); SQUAMOUS EPITHELIAL CELL UR AU 21 /HPF (0-6); UROBILINOGEN, URINE AUTO 0.2 mg/dL (0.0-2.0); WBC, URINE AUTO 1 /HPF (0-3)
== END ==
LOC: M LAB 11:34
PROVIDERS: ATTEND Nurse Practitioner Psychiatric/Mental Health
DX: F11.20 Opioid dependence, uncomplicated (principal)

== ENCOUNTER → 2023-07-16 | Outpatient (CLI) | payer OTHER ==
[2023-07-16 18:36] LABS: HEMATOCRIT 30.3 % (36.0-47.0); HEMOGLOBIN 9.9 g/dl (12.0-15.5); MEAN CORPUSCULAR HGB CONC 32.7 g/dl (32.0-36.5); MEAN CORPUSCULAR VOLUME 91.8 fl (80.0-96.0); PLATELET COUNT, AUTOMATED 223 10^3/uL (150-450)
[2023-07-17 12:07] LABS: WHITE BLOOD COUNT 7.5 10^3/uL (4.0-10.0)
== END ==
LOC: M LAB 16:32
PROVIDERS: ATTEND Obstetrics & Gynecology
DX: Z34.82 Encounter for supervision of other normal pregnancy, second trimester (principal)